=== PATIENT | male | born 1955 | race Caucasian/White ===

== ENCOUNTER 2017-10-19 14:06 | Inpatient (IN) | payer MEDICAID, OTHER ==
[~2017-10-19] VITALS: Ht 190.5 cm; Wt 135.6 kg
[~2017-10-19 14:06] MED LIST: ASCO500C6 PO; WARF4TAB71 PO
[2017-10-19] MEDS ORDERED: PIPERACILLIN/TAZ 3.375G PREMIX 50 ML IV ONE (15:30)
[2017-10-19] MEDS ORDERED: VANCOMYCIN 1 G PREMIX 200 ML IV ONE (15:30)
[2017-10-19] MEDS ORDERED: CLINDAMYCIN 900 MG in DEXTROSE 5% WATER 50 ML IV ONE (15:30)
[2017-10-19] MEDS ORDERED: AZTREONAM 2 GM in DEXT 5% WATER 100 ML IV ONE (15:30)
[2017-10-19] MEDS ORDERED: SODIUM CHLORIDE 0.9% 1000ML BAG (SEPSIS BOLUS) IV ONE ×2 (15:30→23:00)
[2017-10-19 16:03] LABS: HEMATOCRIT. 34.9 % (42.0-52.0); HEMOGLOBIN. 11.3 g/dL (14.0-18.0); MEAN CORPUSCULAR HEMOGLOBIN 27.1 pg (28.0-32.0); MEAN CORPUSCULAR VOLUME 83.3 fL (80.0-94.0); PLATELET 282 x1000/uL (130-400); RED BLOOD CELL COUNT 4.19 mill/uL (4.7-6.1)
[2017-10-19 16:08] LABS: CHLORIDE 92 mEq/L (98-107)
[2017-10-19 17:01] LABS: BG BASE EXCESS -10.5 mmol/L (-2.0-2.0); BG CARBOXYHEMOGLOBIN 0.3 % (0.5-1.5); BG DEOXYHEMOGLOBIN 4.3 % (0.0-5.0); BG HCO3 ACT 13.7 mmol/L (22.0-26.0); BG METHEMOGLOBIN 0.3 % (0.0-1.5); BG OXYGEN SATURATION 95.7 % (92.0-98.5); BG OXYHEMOGLOBIN 95.1 % (94.0-97.0); BG PCO2 25.9 mmHg (35.0-45.0); BG PO2 82.8 mmHg (75.0-100.0); BG SAMPLE SITE RIGHT RADIAL; BG TOTAL HEMOGLOBIN 11.7 g/dL (12.0-18.0); BG VENT MODE ROOM AIR
[2017-10-19 17:41] LABS: PLATELET ESTIMATE NORMAL
[2017-10-19 18:48] VITALS: BP 110/61
[2017-10-19 19:41] LABS: CLARITY URINE CLOUDY (CLEAR); COLOR URINE DARK YELLOW (YELLOW); KETONES URINE NEGATIVE (NEGATIVE); LEUKOCYTE ESTERASE URINE TRACE (NEGATIVE); NITRITE URINE NEGATIVE (NEGATIVE); OCCULT BLOOD URINE NEGATIVE (NEGATIVE); PROTEIN URINE 2+ (NEGATIVE); SPECIFIC GRAVITY URINE 1.015 (1.005-1.030)
[2017-10-19 20:00] VITALS: BP 110/61
[2017-10-19] MEDS ORDERED: VANCOMYCIN 1 G PREMIX 200 ML IV SCH (21:45)
[2017-10-19] MEDS ORDERED: HYDROMORPHONE HCL/PF 2MG/ML CPJ IV PRN (21:45)
[2017-10-19] MEDS ORDERED: LORAZEPAM 2MG/ML CPJ IV PRN (21:45)
[2017-10-19] MEDS ORDERED: ONDANSETRON HCL 4MG/2ML INJ IV PRN (21:45)
[2017-10-19 22:00] VITALS: BP 97/65
[2017-10-19] MEDS ORDERED: DEXTROSE 50% WATER 50ML SYRINGE IV PRN (23:00)
[2017-10-19] MEDS ORDERED: DEXT 5%/0.45% NACL 1000ML 1,000 ML IV SCH (23:00)
[2017-10-19] MEDS ORDERED: SODIUM CHLORIDE 0.9% 500ML IV NR (23:00)
[2017-10-19] MEDS: ACETAMINOPHEN 650MG/20.3ML UDC GT PRN (23:27)
[2017-10-19 23:45] LABS: PROTHROMBIN TIME > 100.0 sec (9.1-11.1)
[2017-10-19 23:49] LABS: INR > 10.0
[2017-10-20] VITALS (16 sets, daily range): BP systolic 91–115; BP diastolic 49–65
[2017-10-20] MEDS: SODIUM CHLORIDE 0.9% 1,000 ML IV SCH ×2 (00:51→21:32)
[2017-10-20] MEDS ORDERED: SENN-170 MT (03:30)
[2017-10-20] MEDS ORDERED: CLON0.1T MT (03:30)
[2017-10-20] MEDS ORDERED: HYDR5CRY MC (03:30)
[2017-10-20] MEDS ORDERED: ASCO-339 MT (03:30)
[2017-10-20] MEDS ORDERED: ACET-2178 MT (03:30)
[2017-10-20] MEDS ORDERED: WARF4TAB40 MT (03:30)
[2017-10-20] MEDS ORDERED: METO-385 MT (03:30)
[2017-10-20] MEDS ORDERED: METF-414 MT (03:30)
[2017-10-20] MEDS: ACETAMINOPHEN 650MG/20.3ML UDC GT PRN (04:24)
[2017-10-20 06:48] LABS: HEMATOCRIT. 32.5 % (42.0-52.0); HEMOGLOBIN. 10.6 g/dL (14.0-18.0); MEAN CORPUSCULAR HEMOGLOBIN 26.8 pg (28.0-32.0); MEAN CORPUSCULAR VOLUME 81.9 fL (80.0-94.0); MEAN PLATELET VOLUME 9.3 fl (7.4-10.4); PLATELET 188 x1000/uL (130-400); RED BLOOD CELL COUNT 3.97 mill/uL (4.7-6.1); RED CELL DISTRIBUTION WIDTH 17.3 % (11.6-14.6)
[2017-10-20 07:55] LABS: PHOSPHORUS 4.3 mg/dL (2.5-4.9)
[2017-10-20] MEDS: INSULIN LISPRO 100 UNITS/ML SUBCUT SCH ×4 (08:00→21:58)
[2017-10-20] MEDS: BLOOD SUGAR DIAGNOSTIC STRIP TEST SCH ×4 (08:44→21:58)
[2017-10-20] MEDS ORDERED: ENOXAPARIN 40MG/0.4ML SYR SUBCUT SCH (09:00)
[2017-10-20 09:15] LABS: *AMPHETAMINES SCREEN URINE NEGATIVE (NEGATIVE); *BARBITURATES SCREEN URINE NEGATIVE (NEGATIVE); *BENZODIAZEPINES SCREEN URINE NEGATIVE (NEGATIVE); *COCAINE SCREEN URINE NEGATIVE (NEGATIVE)
[2017-10-20 09:16] LABS: CANNABINOID URINE SCREEN NEGATIVE (NEGATIVE); METHADONE URINE SCREEN NEGATIVE (NEGATIVE); OPIATES URINE SCREEN PRESUMTIVE POSITIVE (NEGATIVE); PHENCYCLIDINE URINE SCREEN NEGATIVE (NEGATIVE)
[2017-10-20] MEDS: CLINDAMYCIN 900 MG in DEXTROSE 5% WATER 50 ML IV SCH ×2 (13:22→21:58)
[2017-10-20 13:47] LABS: PROTHROMBIN TIME > 100.0 sec (9.1-11.1)
[2017-10-20 13:50] LABS: INR > 10.0
[2017-10-20 17:35] LABS: PLATELET ESTIMATE NORMAL
[2017-10-20] MEDS: AZTREONAM 1 G in DEXTROSE 5% WATER 50 ML IV SCH (18:38)
[2017-10-20] MEDS ORDERED: DAPTOMYCIN 250 MG in SODIUM CHLORIDE 0.9% 50 ML IV SCH (20:00)
[2017-10-21] VITALS (25 sets, daily range): BP systolic 95–118; BP diastolic 47–69
[2017-10-21 00:20] LABS: PROTHROMBIN TIME > 100.0 sec (9.1-11.1)
[2017-10-21 00:24] LABS: INR > 10.0
[2017-10-21] MEDS: SODIUM CHLORIDE 0.9% 1,000 ML IV SCH ×2 (05:12→09:13)
[2017-10-21] MEDS: CLINDAMYCIN 900 MG in DEXTROSE 5% WATER 50 ML IV SCH ×3 (05:12→21:03)
[2017-10-21] MEDS: AZTREONAM 1 G in DEXTROSE 5% WATER 50 ML IV SCH ×2 (06:28→18:15)
[2017-10-21] MEDS ORDERED: PHYTONADIONE 10MG/ML AMP SUBCUT SCH (07:15)
[2017-10-21 07:25] LABS: HEMATOCRIT. 27.5 % (42.0-52.0); HEMOGLOBIN. 9.3 g/dL (14.0-18.0); MEAN CORPUSCULAR HEMOGLOBIN 27.2 pg (28.0-32.0); MEAN CORPUSCULAR VOLUME 80.5 fL (80.0-94.0); MEAN PLATELET VOLUME 9.3 fl (7.4-10.4); PLATELET 129 x1000/uL (130-400); RED BLOOD CELL COUNT 3.42 mill/uL (4.7-6.1); RED CELL DISTRIBUTION WIDTH 17.2 % (11.6-14.6)
[2017-10-21] MEDS: BLOOD SUGAR DIAGNOSTIC STRIP TEST SCH ×4 (08:10→21:05)
[2017-10-21] MEDS: INSULIN LISPRO 100 UNITS/ML SUBCUT SCH ×4 (08:23→21:05)
[2017-10-21] MEDS: INSULIN GLARGINE UD 100 UNITS/ML SYR SUBCUT SCH ×2 (09:14→21:04)
[2017-10-21] MEDS ORDERED: INSULIN GLARGINE UD 100 UNITS/ML SYR SUBCUT SCH (10:00)
[2017-10-21] MEDS ORDERED: DAPTOMYCIN 500 MG in SODIUM CHLORIDE 0.9% 50 ML IV SCH (14:30)
[2017-10-21 15:17] LABS: PLATELET ESTIMATE SLIGHTLY DECREASED
[2017-10-21 19:40] LABS: PROTHROMBIN TIME 61.7 sec (9.1-11.1)
[2017-10-21 20:04] LABS: PHOSPHORUS 4.5 mg/dL (2.5-4.9)
[2017-10-21 20:14] LABS: INR 6.3
[2017-10-22] VITALS (12 sets, daily range): BP systolic 101–125; BP diastolic 55–72
[2017-10-22] MEDS: SODIUM CHLORIDE 0.9% 1,000 ML IV SCH ×3 (05:29→21:19)
[2017-10-22] MEDS: CLINDAMYCIN 900 MG in DEXTROSE 5% WATER 50 ML IV SCH ×3 (05:29→21:10)
[2017-10-22] MEDS: AZTREONAM 1 G in DEXTROSE 5% WATER 50 ML IV SCH ×2 (06:39→17:26)
[2017-10-22 07:13] LABS: HEMATOCRIT. 26.8 % (42.0-52.0); HEMOGLOBIN. 8.9 g/dL (14.0-18.0); MEAN CORPUSCULAR HEMOGLOBIN 26.9 pg (28.0-32.0); MEAN CORPUSCULAR VOLUME 80.6 fL (80.0-94.0); MEAN PLATELET VOLUME 9.7 fl (7.4-10.4); PLATELET 118 x1000/uL (130-400); RED BLOOD CELL COUNT 3.32 mill/uL (4.7-6.1); RED CELL DISTRIBUTION WIDTH 17.3 % (11.6-14.6)
[2017-10-22] MEDS: BLOOD SUGAR DIAGNOSTIC STRIP TEST SCH ×4 (07:32→21:10)
[2017-10-22] MEDS: INSULIN LISPRO 100 UNITS/ML SUBCUT SCH ×4 (08:40→21:11)
[2017-10-22] MEDS ORDERED: DAPTOMYCIN 500 MG in SODIUM CHLORIDE 0.9% 50 ML IV SCH (09:00)
[2017-10-22] MEDS: INSULIN GLARGINE UD 100 UNITS/ML SYR SUBCUT SCH ×2 (09:52→21:11)
[2017-10-22 10:47] LABS: PLATELET ESTIMATE SLIGHTLY DECREASED
[2017-10-22] MEDS ORDERED: PHYTONADIONE 10MG/ML AMP SUBCUT NR ×2 (12:13→16:45)
[2017-10-23] VITALS (17 sets, daily range): BP systolic 108–143; BP diastolic 57–72
[2017-10-23] MEDS: CLINDAMYCIN 900 MG in DEXTROSE 5% WATER 50 ML IV SCH ×3 (05:26→21:51)
[2017-10-23] MEDS: AZTREONAM 1 G in DEXTROSE 5% WATER 50 ML IV SCH ×2 (06:29→17:20)
[2017-10-23] MEDS: SODIUM CHLORIDE 0.9% 1,000 ML IV SCH ×2 (06:30→17:20)
[2017-10-23] MEDS: BLOOD SUGAR DIAGNOSTIC STRIP TEST SCH ×4 (07:54→21:51)
[2017-10-23] MEDS: INSULIN LISPRO 100 UNITS/ML SUBCUT SCH ×4 (08:17→21:57)
[2017-10-23 09:00] LABS: HEMATOCRIT. 28.6 % (42.0-52.0); HEMOGLOBIN. 9.5 g/dL (14.0-18.0); MEAN CORPUSCULAR HEMOGLOBIN 26.6 pg (28.0-32.0); MEAN CORPUSCULAR VOLUME 80.5 fL (80.0-94.0); MEAN PLATELET VOLUME 9.4 fl (7.4-10.4); PLATELET 120 x1000/uL (130-400); RED BLOOD CELL COUNT 3.56 mill/uL (4.7-6.1); RED CELL DISTRIBUTION WIDTH 17.5 % (11.6-14.6)
[2017-10-23] MEDS: INSULIN GLARGINE UD 100 UNITS/ML SYR SUBCUT SCH ×2 (09:44→21:51)
[2017-10-23 11:05] LABS: PLATELET ESTIMATE SLIGHTLY DECREASED
[2017-10-23 11:42] LABS: PROTHROMBIN TIME > 100.0 sec (9.1-11.1)
[2017-10-23 11:43] LABS: INR > 10.0
[2017-10-24] VITALS (19 sets, daily range): BP systolic 116–137; BP diastolic 56–77
[2017-10-24] MEDS: SODIUM CHLORIDE 0.9% 1,000 ML IV SCH ×3 (05:11→22:15)
[2017-10-24] MEDS: CLINDAMYCIN 900 MG in DEXTROSE 5% WATER 50 ML IV SCH ×3 (05:18→21:37)
[2017-10-24] MEDS: AZTREONAM 1 G in DEXTROSE 5% WATER 50 ML IV SCH ×2 (05:50→17:41)
[2017-10-24] MEDS: BLOOD SUGAR DIAGNOSTIC STRIP TEST SCH ×4 (08:03→21:40)
[2017-10-24] MEDS: INSULIN LISPRO 100 UNITS/ML SUBCUT SCH ×4 (08:55→21:39)
[2017-10-24] MEDS: INSULIN GLARGINE UD 100 UNITS/ML SYR SUBCUT SCH ×2 (10:13→21:39)
[2017-10-24 14:05] LABS: HEMATOCRIT. 26.4 % (42.0-52.0); HEMOGLOBIN. 8.8 g/dL (14.0-18.0); MEAN CORPUSCULAR HEMOGLOBIN 27.1 pg (28.0-32.0); MEAN CORPUSCULAR VOLUME 81.1 fL (80.0-94.0); MEAN PLATELET VOLUME 9.8 fl (7.4-10.4); PLATELET 165 x1000/uL (130-400); RED BLOOD CELL COUNT 3.25 mill/uL (4.7-6.1); RED CELL DISTRIBUTION WIDTH 16.8 % (11.6-14.6)
[2017-10-24 14:19] LABS: PROTHROMBIN TIME 42.1 sec (9.1-11.1)
[2017-10-24 14:29] LABS: INR 4.3
[2017-10-24 14:36] LABS: PLATELET ESTIMATE NORMAL
[2017-10-25] VITALS (8 sets, daily range): BP systolic 106–142; BP diastolic 52–68
[2017-10-25] MEDS: CLINDAMYCIN 900 MG in DEXTROSE 5% WATER 50 ML IV SCH ×3 (04:29→22:05)
[2017-10-25] MEDS: AZTREONAM 1 G in DEXTROSE 5% WATER 50 ML IV SCH ×2 (05:30→18:58)
[2017-10-25] MEDS: BLOOD SUGAR DIAGNOSTIC STRIP TEST SCH ×4 (06:59→21:31)
[2017-10-25] MEDS: SODIUM CHLORIDE 0.9% 1,000 ML IV SCH ×3 (08:15→21:44)
[2017-10-25] MEDS: INSULIN LISPRO 100 UNITS/ML SUBCUT SCH ×4 (08:25→21:43)
[2017-10-25 09:07] LABS: HEMATOCRIT. 24.1 % (42.0-52.0); HEMOGLOBIN. 8.1 g/dL (14.0-18.0); MEAN CORPUSCULAR HEMOGLOBIN 27.2 pg (28.0-32.0); MEAN CORPUSCULAR VOLUME 80.9 fL (80.0-94.0); MEAN PLATELET VOLUME 9.6 fl (7.4-10.4); PLATELET 176 x1000/uL (130-400); RED BLOOD CELL COUNT 2.98 mill/uL (4.7-6.1); RED CELL DISTRIBUTION WIDTH 16.5 % (11.6-14.6)
[2017-10-25 09:20] LABS: PROTHROMBIN TIME 43.2 sec (9.1-11.1)
[2017-10-25 11:39] LABS: INR 4.4
[2017-10-25] MEDS: INSULIN GLARGINE UD 100 UNITS/ML SYR SUBCUT SCH ×2 (11:58→21:43)
[2017-10-25] MEDS ORDERED: PHYTONADIONE 10MG/ML AMP SUBCUT NR (12:00)
[2017-10-25 16:03] LABS: PLATELET ESTIMATE NORMAL
[2017-10-26 00:15] VITALS: BP 142/43
[2017-10-26 04:00] VITALS: BP 117/54
[2017-10-26] MEDS: AZTREONAM 1 G in DEXTROSE 5% WATER 50 ML IV SCH ×2 (05:13→18:37)
[2017-10-26] MEDS: BLOOD SUGAR DIAGNOSTIC STRIP TEST SCH ×4 (05:13→21:00)
[2017-10-26] MEDS: CLINDAMYCIN 900 MG in DEXTROSE 5% WATER 50 ML IV SCH ×3 (05:13→21:40)
[2017-10-26 06:40] LABS: HEMATOCRIT. 23.1 % (42.0-52.0); HEMOGLOBIN. 7.7 g/dL (14.0-18.0); MEAN CORPUSCULAR HEMOGLOBIN 27.6 pg (28.0-32.0); MEAN CORPUSCULAR VOLUME 82.8 fL (80.0-94.0); MEAN PLATELET VOLUME 9.7 fl (7.4-10.4); PLATELET 215 x1000/uL (130-400); RED BLOOD CELL COUNT 2.78 mill/uL (4.7-6.1); RED CELL DISTRIBUTION WIDTH 16.5 % (11.6-14.6)
[2017-10-26 08:00] VITALS: BP 116/55
[2017-10-26] MEDS: INSULIN LISPRO 100 UNITS/ML SUBCUT SCH ×4 (08:10→21:54)
[2017-10-26] MEDS: INSULIN GLARGINE UD 100 UNITS/ML SYR SUBCUT SCH ×2 (10:00→21:53)
[2017-10-26 12:00] VITALS: BP 124/61
[2017-10-26 14:06] LABS: PLATELET ESTIMATE NORMAL
[2017-10-26 16:00] VITALS: BP 136/67
[2017-10-26 20:00] VITALS: BP 137/54
[2017-10-26 20:52] LABS: INR 2.4; PROTHROMBIN TIME 23.4 sec (9.1-11.1)
[2017-10-27] MEDS: ACETAMINOPHEN 650MG/20.3ML UDC GT PRN ×2 (00:30→20:27)
[2017-10-27] MEDS: LINEZOLID 600 MG PREMIX 300 ML IV SCH ×3 (00:31→20:27)
[2017-10-27 00:36] VITALS: BP 132/41
[2017-10-27 04:00] VITALS: BP 129/55
[2017-10-27] MEDS: AZTREONAM 1 G in DEXTROSE 5% WATER 50 ML IV SCH (06:58)
[2017-10-27] MEDS: BLOOD SUGAR DIAGNOSTIC STRIP TEST SCH ×4 (07:04→20:16)
[2017-10-27 08:00] VITALS: BP 124/58
[2017-10-27] MEDS: INSULIN LISPRO 100 UNITS/ML SUBCUT SCH ×4 (08:10→20:52)
[2017-10-27 09:32] LABS: HEMATOCRIT. 23.4 % (42.0-52.0); HEMOGLOBIN. 7.7 g/dL (14.0-18.0); MEAN CORPUSCULAR HEMOGLOBIN 27.6 pg (28.0-32.0); MEAN CORPUSCULAR VOLUME 83.7 fL (80.0-94.0); MEAN PLATELET VOLUME 9.3 fl (7.4-10.4); PLATELET 236 x1000/uL (130-400); RED CELL DISTRIBUTION WIDTH 16.1 % (11.6-14.6)
[2017-10-27] MEDS: INSULIN GLARGINE UD 100 UNITS/ML SYR SUBCUT SCH ×2 (10:29→20:52)
[2017-10-27 11:07] LABS: PLATELET ESTIMATE NORMAL
[2017-10-27 12:00] VITALS: BP 120/63
[2017-10-27 16:00] VITALS: BP 136/55
[2017-10-27] MEDS ORDERED: AZTREONAM 2 GM in DEXT 5% WATER 100 ML IV SCH (18:00)
[2017-10-27 20:00] VITALS: BP 129/52
[2017-10-28] VITALS: BP 123/52
[2017-10-28 04:00] VITALS: BP 133/88
[2017-10-28] MEDS: BLOOD SUGAR DIAGNOSTIC STRIP TEST SCH ×4 (06:57→21:26)
[2017-10-28] MEDS: INSULIN LISPRO 100 UNITS/ML SUBCUT SCH ×4 (06:57→21:28)
[2017-10-28 08:00] VITALS: BP 139/87
[2017-10-28] MEDS: LINEZOLID 600 MG PREMIX 300 ML IV SCH ×2 (10:00→21:28)
[2017-10-28] MEDS: INSULIN GLARGINE UD 100 UNITS/ML SYR SUBCUT SCH ×2 (10:41→22:36)
[2017-10-28 12:00] VITALS: BP 143/67
[2017-10-28 16:00] VITALS: BP 132/70
[2017-10-28] MEDS ORDERED: LIDOCAINE HCL/EPINEPHRINE 1%-EPI 1:100,000 20 ML VIAL INFIL NR (19:00)
[2017-10-28 20:00] VITALS: BP 134/65
[2017-10-28 22:01] LABS: INR 1.3; PROTHROMBIN TIME 13.4 sec (9.1-11.1)
[2017-10-29] VITALS (9 sets, daily range): BP systolic 124–144; BP diastolic 45–67
[2017-10-29 07:26] LABS: MEAN CORPUSCULAR HEMOGLOBIN 28.1 pg (28.0-32.0); MEAN CORPUSCULAR VOLUME 86.3 fL (80.0-94.0); MEAN PLATELET VOLUME 9.4 fl (7.4-10.4); PLATELET 242 x1000/uL (130-400); RED BLOOD CELL COUNT 2.41 mill/uL (4.7-6.1); RED CELL DISTRIBUTION WIDTH 17.2 % (11.6-14.6)
[2017-10-29] MEDS: BLOOD SUGAR DIAGNOSTIC STRIP TEST SCH ×4 (07:40→21:19)
[2017-10-29 08:10] LABS: HEMATOCRIT. 20.8 % (42.0-52.0); HEMOGLOBIN. 6.8 g/dL (14.0-18.0)
[2017-10-29] MEDS: INSULIN LISPRO 100 UNITS/ML SUBCUT SCH ×4 (08:10→21:55)
[2017-10-29] MEDS: INSULIN GLARGINE UD 100 UNITS/ML SYR SUBCUT SCH ×2 (10:00→21:54)
[2017-10-29 10:10] LABS: CHLORIDE 105 mEq/L (98-107)
[2017-10-29 10:32] LABS: PHOSPHORUS 4.3 mg/dL (2.5-4.9)
[2017-10-29] MEDS: LINEZOLID 600 MG PREMIX 300 ML IV SCH ×2 (10:59→21:57)
[2017-10-29 16:15] LABS: HEPATITIS B SURFACE ANTIGEN NEGATIVE
[2017-10-29 20:42] LABS: PLATELET ESTIMATE NORMAL
[2017-10-29 21:51] LABS: HEMATOCRIT 24.3 % (42.0-52.0)
[2017-10-29 21:59] LABS: INR 1.2; PROTHROMBIN TIME 12.4 sec (9.1-11.1)
[2017-10-30] VITALS (10 sets, daily range): BP systolic 116–163; BP diastolic 60–73
[2017-10-30] MEDS: BLOOD SUGAR DIAGNOSTIC STRIP TEST SCH ×4 (08:09→20:24)
[2017-10-30] MEDS: INSULIN LISPRO 100 UNITS/ML SUBCUT SCH ×5 (08:10→20:24)
[2017-10-30] MEDS: LINEZOLID 600 MG PREMIX 300 ML IV SCH ×2 (08:27→20:20)
[2017-10-30] MEDS ORDERED: LIDOCAINE HCL/EPINEPHRINE 1%-EPI 1:100,000 30 ML VIAL INFIL SCH (08:30)
[2017-10-30] MEDS: INSULIN GLARGINE UD 100 UNITS/ML SYR SUBCUT SCH ×2 (08:40→21:47)
[2017-10-30 08:59] LABS: HEMATOCRIT. 26.7 % (42.0-52.0); HEMOGLOBIN. 8.9 g/dL (14.0-18.0); MEAN CORPUSCULAR HEMOGLOBIN 28.6 pg (28.0-32.0); MEAN CORPUSCULAR VOLUME 85.2 fL (80.0-94.0); MEAN PLATELET VOLUME 9.5 fl (7.4-10.4); PLATELET 260 x1000/uL (130-400); RED BLOOD CELL COUNT 3.13 mill/uL (4.7-6.1); RED CELL DISTRIBUTION WIDTH 16.9 % (11.6-14.6)
[2017-10-30 09:53] LABS: PLATELET ESTIMATE NORMAL
[2017-10-30 13:32] LABS: CHLORIDE 104 mEq/L (98-107)
[2017-10-30 13:47] LABS: INR 1.2; PROTHROMBIN TIME 12.5 sec (9.1-11.1)
[2017-10-31] VITALS: BP 145/70
[2017-10-31 04:00] VITALS: BP 153/68
[2017-10-31] MEDS: BLOOD SUGAR DIAGNOSTIC STRIP TEST SCH ×4 (05:05→20:25)
[2017-10-31 08:00] VITALS: BP 147/74
[2017-10-31] MEDS: INSULIN LISPRO 100 UNITS/ML SUBCUT SCH ×4 (08:10→20:30)
[2017-10-31] MEDS: LINEZOLID 600 MG PREMIX 300 ML IV SCH ×2 (09:21→20:29)
[2017-10-31] MEDS: INSULIN GLARGINE UD 100 UNITS/ML SYR SUBCUT SCH ×2 (09:22→21:12)
[2017-10-31 12:00] VITALS: BP 166/87
[2017-10-31] MEDS: AMLODIPINE 5MG TABLET PO SCH ×2 (12:39→20:30)
[2017-10-31 16:00] VITALS: BP 168/72
[2017-10-31 20:00] VITALS: BP 125/62
[2017-11-01] VITALS: BP 143/60
[2017-11-01 04:00] VITALS: BP 118/56
[2017-11-01] MEDS: BLOOD SUGAR DIAGNOSTIC STRIP TEST SCH ×4 (07:49→21:17)
[2017-11-01] MEDS: INSULIN LISPRO 100 UNITS/ML SUBCUT SCH ×4 (07:49→21:00)
[2017-11-01 08:00] VITALS: BP 136/73
[2017-11-01] MEDS: AMLODIPINE 5MG TABLET PO SCH ×2 (09:00→21:15)
[2017-11-01] MEDS: LINEZOLID 600 MG PREMIX 300 ML IV SCH ×2 (09:01→21:17)
[2017-11-01] MEDS: INSULIN GLARGINE UD 100 UNITS/ML SYR SUBCUT SCH ×2 (09:03→21:16)
[2017-11-01 12:00] VITALS: BP 129/70
[2017-11-01 16:00] VITALS: BP 134/64
[2017-11-01 20:00] VITALS: BP 135/55
[2017-11-02 04:00] VITALS: BP 127/55
[2017-11-02 07:40] LABS: BASOPHILS % 0.8 % (0.0-2.0); EOSINOPHILS % 0.8 % (0.0-5.0); HEMATOCRIT. 26.8 % (42.0-52.0); HEMOGLOBIN. 8.8 g/dL (14.0-18.0); LYMPHOCYTES % 8.7 % (20.0-50.0); MEAN CORPUSCULAR HEMOGLOBIN 28.7 pg (28.0-32.0); MEAN CORPUSCULAR VOLUME 87.4 fL (80.0-94.0); MEAN PLATELET VOLUME 8.4 fl (7.4-10.4); MONOCYTES % 6.5 % (2.0-8.0); NEUTROPHILS % 83.2 % (40.0-76.0); PLATELET 208 x1000/uL (130-400); RED BLOOD CELL COUNT 3.06 mill/uL (4.7-6.1); RED CELL DISTRIBUTION WIDTH 18.4 % (11.6-14.6)
[2017-11-02 07:58] LABS: CHLORIDE 102 mEq/L (98-107)
[2017-11-02 08:00] VITALS: BP 146/74
[2017-11-02] MEDS: INSULIN LISPRO 100 UNITS/ML SUBCUT SCH ×4 (08:10→21:00)
[2017-11-02] MEDS: BLOOD SUGAR DIAGNOSTIC STRIP TEST SCH ×4 (08:11→21:49)
[2017-11-02] MEDS: AMLODIPINE 5MG TABLET PO SCH ×2 (09:07→21:48)
[2017-11-02] MEDS: LINEZOLID 600 MG PREMIX 300 ML IV SCH ×2 (09:09→21:50)
[2017-11-02] MEDS: INSULIN GLARGINE UD 100 UNITS/ML SYR SUBCUT SCH ×2 (09:10→21:49)
[2017-11-02 12:00] VITALS: BP 133/68
[2017-11-02] MEDS: LEVOFLOXACIN 250MG TABLET PO SCH (12:40)
[2017-11-02 16:00] VITALS: BP 136/63
[2017-11-02] MEDS: MAGNESIUM OXIDE 400MG TABLET PO SCH (16:56)
[2017-11-02 20:00] VITALS: BP 122/47
[2017-11-03] MEDS: BLOOD SUGAR DIAGNOSTIC STRIP TEST SCH ×3 (05:55→21:06)
[2017-11-03] MEDS: INSULIN LISPRO 100 UNITS/ML SUBCUT SCH ×3 (07:39→21:00)
[2017-11-03 08:00] VITALS: BP 127/62
[2017-11-03] MEDS: MAGNESIUM OXIDE 400MG TABLET PO SCH (09:32)
[2017-11-03] MEDS: AMLODIPINE 5MG TABLET PO SCH ×2 (09:32→21:00)
[2017-11-03] MEDS: INSULIN GLARGINE UD 100 UNITS/ML SYR SUBCUT SCH ×2 (09:33→21:12)
[2017-11-03] MEDS: LEVOFLOXACIN 250MG TABLET PO SCH (11:29)
[2017-11-03 12:00] VITALS: BP 136/65
[2017-11-03 16:00] VITALS: BP 116/54
[2017-11-03 20:00] VITALS: BP 111/47
[2017-11-04] VITALS: BP 126/55
[2017-11-04] MEDS: ACETAMINOPHEN 650MG/20.3ML UDC GT PRN ×2 (00:41→22:05)
[2017-11-04 04:00] VITALS: BP 114/55
[2017-11-04] MEDS: BLOOD SUGAR DIAGNOSTIC STRIP TEST SCH ×4 (05:46→21:00)
[2017-11-04] MEDS: INSULIN LISPRO 100 UNITS/ML SUBCUT SCH ×4 (07:31→21:00)
[2017-11-04 08:00] VITALS: BP 126/54
[2017-11-04] MEDS: AMLODIPINE 5MG TABLET PO SCH ×2 (09:44→22:06)
[2017-11-04] MEDS: MAGNESIUM OXIDE 400MG TABLET PO SCH (09:44)
[2017-11-04] MEDS: INSULIN GLARGINE UD 100 UNITS/ML SYR SUBCUT SCH ×2 (09:46→22:07)
[2017-11-04] MEDS: LEVOFLOXACIN 250MG TABLET PO SCH (11:53)
[2017-11-04 12:00] VITALS: BP 128/54
[2017-11-04 16:00] VITALS: BP 135/60
[2017-11-04] MEDS: NYSTATIN POWDER 15GM TOP SCH (17:00)
[2017-11-04] MEDS: MUPIROCIN 2% OINT 22GM TOP SCH (17:00)
[2017-11-04 20:00] VITALS: BP 127/51
[2017-11-05] VITALS: BP 122/52
[2017-11-05 04:00] VITALS: BP 128/56
[2017-11-05] MEDS: BLOOD SUGAR DIAGNOSTIC STRIP TEST SCH ×4 (06:33→21:27)
[2017-11-05] MEDS: INSULIN LISPRO 100 UNITS/ML SUBCUT SCH ×4 (07:56→21:00)
[2017-11-05 08:00] VITALS: BP 133/66
[2017-11-05] MEDS: INSULIN GLARGINE UD 100 UNITS/ML SYR SUBCUT SCH ×2 (09:35→22:14)
[2017-11-05] MEDS: NYSTATIN POWDER 15GM TOP SCH ×2 (09:35→18:04)
[2017-11-05] MEDS: MUPIROCIN 2% OINT 22GM TOP SCH ×2 (09:35→18:04)
[2017-11-05] MEDS: MAGNESIUM OXIDE 400MG TABLET PO SCH (09:36)
[2017-11-05] MEDS: AMLODIPINE 5MG TABLET PO SCH ×2 (09:37→22:13)
[2017-11-05] MEDS: LEVOFLOXACIN 250MG TABLET PO SCH (10:05)
[2017-11-05 10:44] LABS: BASOPHILS % 1.1 % (0.0-2.0); EOSINOPHILS % 2.3 % (0.0-5.0); HEMATOCRIT. 25.9 % (42.0-52.0); HEMOGLOBIN. 8.6 g/dL (14.0-18.0); LYMPHOCYTES % 9.3 % (20.0-50.0); MEAN CORPUSCULAR HEMOGLOBIN 29.4 pg (28.0-32.0); MEAN PLATELET VOLUME 7.6 fl (7.4-10.4); MONOCYTES % 8.2 % (2.0-8.0); NEUTROPHILS % 79.1 % (40.0-76.0); PLATELET 155 x1000/uL (130-400); RED BLOOD CELL COUNT 2.91 mill/uL (4.7-6.1); RED CELL DISTRIBUTION WIDTH 19.4 % (11.6-14.6)
[2017-11-05 10:49] LABS: INR 1.2; PROTHROMBIN TIME 12.5 sec (9.1-11.1)
[2017-11-05 12:00] VITALS: BP 139/60
[2017-11-05 16:00] VITALS: BP 124/55
[2017-11-05 20:00] VITALS: BP 132/57
[2017-11-06] VITALS: BP 140/66
[2017-11-06 04:00] VITALS: BP 134/66
[2017-11-06] MEDS: BLOOD SUGAR DIAGNOSTIC STRIP TEST SCH ×4 (07:31→21:16)
[2017-11-06] MEDS: INSULIN LISPRO 100 UNITS/ML SUBCUT SCH ×4 (07:31→21:00)
[2017-11-06 08:00] VITALS: BP 133/67
[2017-11-06] MEDS: MAGNESIUM OXIDE 400MG TABLET PO SCH (08:53)
[2017-11-06] MEDS: AMLODIPINE 5MG TABLET PO SCH ×2 (08:53→21:00)
[2017-11-06] MEDS: NYSTATIN POWDER 15GM TOP SCH ×2 (08:58→17:00)
[2017-11-06] MEDS: MUPIROCIN 2% OINT 22GM TOP SCH ×2 (09:00→17:00)
[2017-11-06] MEDS: LEVOFLOXACIN 250MG TABLET PO SCH (10:56)
[2017-11-06] MEDS: INSULIN GLARGINE UD 100 UNITS/ML SYR SUBCUT SCH ×2 (10:56→22:00)
[2017-11-06 12:00] VITALS: BP 138/71
[2017-11-06 16:00] VITALS: BP 156/71
[2017-11-06 20:00] VITALS: BP 118/56
[2017-11-07] VITALS: BP 120/58
[2017-11-07 04:00] VITALS: BP 120/58
[2017-11-07 08:00] VITALS: BP 125/58
[2017-11-07] MEDS: INSULIN LISPRO 100 UNITS/ML SUBCUT SCH ×4 (08:10→20:15)
[2017-11-07] MEDS: BLOOD SUGAR DIAGNOSTIC STRIP TEST SCH ×4 (08:26→20:15)
[2017-11-07] MEDS: NYSTATIN POWDER 15GM TOP SCH ×2 (09:00→17:00)
[2017-11-07] MEDS: MUPIROCIN 2% OINT 22GM TOP SCH ×2 (09:00→17:00)
[2017-11-07] MEDS: MAGNESIUM OXIDE 400MG TABLET PO SCH (09:06)
[2017-11-07] MEDS: AMLODIPINE 5MG TABLET PO SCH ×2 (09:06→20:30)
[2017-11-07] MEDS: INSULIN GLARGINE UD 100 UNITS/ML SYR SUBCUT SCH ×2 (10:00→20:37)
[2017-11-07] MEDS: LEVOFLOXACIN 250MG TABLET PO SCH (11:35)
[2017-11-07 12:00] VITALS: BP 123/56
[2017-11-07 16:00] VITALS: BP 127/59
[2017-11-07 20:00] VITALS: BP 129/67
[2017-11-07] MEDS: ACETAMINOPHEN 650MG/20.3ML UDC GT PRN (20:31)
[2017-11-08] VITALS: BP 128/63
[2017-11-08 04:00] VITALS: BP 122/62
[2017-11-08 08:00] VITALS: BP 190/83
[2017-11-08] MEDS: INSULIN LISPRO 100 UNITS/ML SUBCUT SCH ×4 (08:10→21:00)
[2017-11-08] MEDS: BLOOD SUGAR DIAGNOSTIC STRIP TEST SCH ×4 (08:12→21:09)
[2017-11-08] MEDS: AMLODIPINE 5MG TABLET PO SCH ×2 (08:13→21:11)
[2017-11-08] MEDS: MAGNESIUM OXIDE 400MG TABLET PO SCH (08:13)
[2017-11-08] MEDS: NYSTATIN POWDER 15GM TOP SCH ×2 (08:14→17:00)
[2017-11-08] MEDS: MUPIROCIN 2% OINT 22GM TOP SCH ×2 (08:15→17:00)
[2017-11-08 12:00] VITALS: BP 139/66
[2017-11-08] MEDS: LEVOFLOXACIN 250MG TABLET PO SCH (13:17)
[2017-11-08] MEDS: INSULIN GLARGINE UD 100 UNITS/ML SYR SUBCUT SCH ×2 (13:17→21:11)
[2017-11-08 16:00] VITALS: BP 136/64
[2017-11-08 20:00] VITALS: BP 120/56
[2017-11-09] VITALS (7 sets, daily range): BP systolic 122–130; BP diastolic 53–70
[2017-11-09] MEDS: BLOOD SUGAR DIAGNOSTIC STRIP TEST SCH ×4 (06:57→21:47)
[2017-11-09] MEDS: INSULIN LISPRO 100 UNITS/ML SUBCUT SCH ×4 (08:10→21:00)
[2017-11-09] MEDS: MAGNESIUM OXIDE 400MG TABLET PO SCH (08:38)
[2017-11-09] MEDS: LEVOFLOXACIN 250MG TABLET PO SCH (08:38)
[2017-11-09] MEDS: AMLODIPINE 5MG TABLET PO SCH ×2 (08:38→21:51)
[2017-11-09] MEDS: NYSTATIN POWDER 15GM TOP SCH ×2 (08:39→17:27)
[2017-11-09] MEDS: MUPIROCIN 2% OINT 22GM TOP SCH ×2 (08:39→17:27)
[2017-11-09] MEDS: INSULIN GLARGINE UD 100 UNITS/ML SYR SUBCUT SCH ×2 (12:36→21:48)
[2017-11-10] VITALS: BP 127/70
[2017-11-10 04:00] VITALS: BP 125/68
[2017-11-10] MEDS: BLOOD SUGAR DIAGNOSTIC STRIP TEST SCH ×3 (07:40→21:47)
[2017-11-10 07:51] LABS: BASOPHILS % 0.7 % (0.0-2.0); EOSINOPHILS % 3.3 % (0.0-5.0); HEMATOCRIT. 27.4 % (42.0-52.0); HEMOGLOBIN. 9.2 g/dL (14.0-18.0); LYMPHOCYTES % 9.5 % (20.0-50.0); MEAN CORPUSCULAR HEMOGLOBIN 29.8 pg (28.0-32.0); MEAN CORPUSCULAR VOLUME 88.9 fL (80.0-94.0); MEAN PLATELET VOLUME 6.9 fl (7.4-10.4); NEUTROPHILS % 75.5 % (40.0-76.0); PLATELET 235 x1000/uL (130-400); RED BLOOD CELL COUNT 3.08 mill/uL (4.7-6.1); RED CELL DISTRIBUTION WIDTH 20.7 % (11.6-14.6)
[2017-11-10 08:00] VITALS: BP 127/65
[2017-11-10 08:09] LABS: CHLORIDE 101 mEq/L (98-107)
[2017-11-10] MEDS: INSULIN LISPRO 100 UNITS/ML SUBCUT SCH ×3 (08:10→21:00)
[2017-11-10] MEDS: MAGNESIUM OXIDE 400MG TABLET PO SCH (10:08)
[2017-11-10] MEDS: AMLODIPINE 5MG TABLET PO SCH ×2 (10:08→21:49)
[2017-11-10] MEDS: INSULIN GLARGINE UD 100 UNITS/ML SYR SUBCUT SCH ×2 (10:10→21:50)
[2017-11-10] MEDS: NYSTATIN POWDER 15GM TOP SCH ×2 (10:17→17:00)
[2017-11-10] MEDS: MUPIROCIN 2% OINT 22GM TOP SCH ×2 (10:18→17:00)
[2017-11-10 12:00] VITALS: BP 129/68
[2017-11-10 16:00] VITALS: BP 133/60
[2017-11-10 20:00] VITALS: BP 127/61
[2017-11-11] VITALS: BP 95/56
[2017-11-11 04:00] VITALS: BP 127/68
[2017-11-11] MEDS: BLOOD SUGAR DIAGNOSTIC STRIP TEST SCH ×3 (06:49→17:40)
[2017-11-11] MEDS: INSULIN LISPRO 100 UNITS/ML SUBCUT SCH ×2 (08:10→13:10)
[2017-11-11 09:12] VITALS: BP 132/72
[2017-11-11] MEDS: MAGNESIUM OXIDE 400MG TABLET PO SCH (09:52)
[2017-11-11] MEDS: AMLODIPINE 5MG TABLET PO SCH ×2 (09:52→21:07)
[2017-11-11] MEDS: MUPIROCIN 2% OINT 22GM TOP SCH ×2 (09:53→17:06)
[2017-11-11] MEDS: NYSTATIN POWDER 15GM TOP SCH ×2 (09:53→17:06)
[2017-11-11] MEDS: INSULIN GLARGINE UD 100 UNITS/ML SYR SUBCUT SCH (09:54)
[2017-11-11 12:17] VITALS: BP 119/58
[2017-11-11 15:42] VITALS: BP 112/56
[2017-11-11 20:00] VITALS: BP 125/66
[2017-11-12] VITALS: BP 129/67
[2017-11-12 04:00] VITALS: BP 130/58
[2017-11-12] MEDS: INSULIN LISPRO 100 UNITS/ML SUBCUT SCH ×4 (08:10→21:00)
[2017-11-12] MEDS: MAGNESIUM OXIDE 400MG TABLET PO SCH (09:16)
[2017-11-12] MEDS: AMLODIPINE 5MG TABLET PO SCH ×2 (09:16→21:28)
[2017-11-12] MEDS: INSULIN GLARGINE UD 100 UNITS/ML SYR SUBCUT SCH ×2 (09:18→21:29)
[2017-11-12] MEDS: MUPIROCIN 2% OINT 22GM TOP SCH ×2 (09:18→17:24)
[2017-11-12] MEDS: NYSTATIN POWDER 15GM TOP SCH ×2 (09:19→17:24)
[2017-11-12] MEDS: LEVOFLOXACIN 250MG TABLET PO SCH (12:01)
[2017-11-12] MEDS: BLOOD SUGAR DIAGNOSTIC STRIP TEST SCH ×3 (12:06→21:28)
[2017-11-12 12:16] VITALS: BP 127/62
[2017-11-12 16:21] VITALS: BP 122/58
[2017-11-12 20:25] VITALS: BP 120/62
[2017-11-13] VITALS: BP 134/68
[2017-11-13] MEDS: BLOOD SUGAR DIAGNOSTIC STRIP TEST SCH ×4 (06:41→20:34)
[2017-11-13 08:00] VITALS: BP 126/62
[2017-11-13] MEDS: INSULIN LISPRO 100 UNITS/ML SUBCUT SCH ×4 (08:10→20:34)
[2017-11-13] MEDS: MAGNESIUM OXIDE 400MG TABLET PO SCH (08:19)
[2017-11-13] MEDS: AMLODIPINE 5MG TABLET PO SCH ×2 (08:19→20:34)
[2017-11-13] MEDS: MUPIROCIN 2% OINT 22GM TOP SCH ×2 (09:00→16:51)
[2017-11-13] MEDS: NYSTATIN POWDER 15GM TOP SCH ×2 (09:00→16:51)
[2017-11-13] MEDS: LEVOFLOXACIN 250MG TABLET PO SCH (10:44)
[2017-11-13] MEDS: INSULIN GLARGINE UD 100 UNITS/ML SYR SUBCUT SCH ×2 (10:46→21:11)
[2017-11-13 12:00] VITALS: BP 120/71
[2017-11-13 15:46] VITALS: BP 114/64
[2017-11-13 20:22] VITALS: BP 114/54
[2017-11-13 23:49] VITALS: BP 124/72
[2017-11-14 04:00] VITALS: BP 125/60
[2017-11-14] MEDS: BLOOD SUGAR DIAGNOSTIC STRIP TEST SCH ×4 (06:19→21:00)
[2017-11-14 08:00] VITALS: BP 122/61
[2017-11-14] MEDS: INSULIN LISPRO 100 UNITS/ML SUBCUT SCH ×4 (08:10→21:00)
[2017-11-14] MEDS: AMLODIPINE 5MG TABLET PO SCH ×2 (08:34→22:19)
[2017-11-14] MEDS: MAGNESIUM OXIDE 400MG TABLET PO SCH (08:34)
[2017-11-14] MEDS: MUPIROCIN 2% OINT 22GM TOP SCH ×2 (08:34→16:42)
[2017-11-14] MEDS: NYSTATIN POWDER 15GM TOP SCH ×2 (09:00→16:42)
[2017-11-14 09:39] LABS: BASOPHILS % 1.3 % (0.0-2.0); HEMATOCRIT. 27.6 % (42.0-52.0); HEMOGLOBIN. 9.1 g/dL (14.0-18.0); MEAN CORPUSCULAR HEMOGLOBIN 29.2 pg (28.0-32.0); MEAN CORPUSCULAR VOLUME 88.8 fL (80.0-94.0); MEAN PLATELET VOLUME 7.8 fl (7.4-10.4); MONOCYTES % 9.1 % (2.0-8.0); NEUTROPHILS % 78.6 % (40.0-76.0); PLATELET 263 x1000/uL (130-400); RED BLOOD CELL COUNT 3.11 mill/uL (4.7-6.1); RED CELL DISTRIBUTION WIDTH 19.2 % (11.6-14.6)
[2017-11-14 10:00] LABS: CHLORIDE 100 mEq/L (98-107)
[2017-11-14 10:05] LABS: PHOSPHORUS 3.9 mg/dL (2.5-4.9)
[2017-11-14] MEDS: INSULIN GLARGINE UD 100 UNITS/ML SYR SUBCUT SCH ×2 (10:52→22:20)
[2017-11-14] MEDS: LEVOFLOXACIN 250MG TABLET PO SCH (11:35)
[2017-11-14 12:00] VITALS: BP 120/58
[2017-11-14 16:00] VITALS: BP 121/61
[2017-11-14 20:00] VITALS: BP 122/60
[2017-11-15] VITALS: BP 123/65
[2017-11-15 04:00] VITALS: BP 118/66
[2017-11-15] MEDS: BLOOD SUGAR DIAGNOSTIC STRIP TEST SCH ×4 (06:46→21:10)
[2017-11-15 08:00] VITALS: BP 116/62
[2017-11-15] MEDS: INSULIN LISPRO 100 UNITS/ML SUBCUT SCH ×4 (08:10→21:14)
[2017-11-15] MEDS: AMLODIPINE 5MG TABLET PO SCH ×2 (09:24→21:13)
[2017-11-15] MEDS: MAGNESIUM OXIDE 400MG TABLET PO SCH (09:24)
[2017-11-15] MEDS: MUPIROCIN 2% OINT 22GM TOP SCH ×2 (09:26→17:00)
[2017-11-15] MEDS: INSULIN GLARGINE UD 100 UNITS/ML SYR SUBCUT SCH ×2 (09:26→21:15)
[2017-11-15] MEDS: NYSTATIN POWDER 15GM TOP SCH ×2 (09:28→17:00)
[2017-11-15 12:00] VITALS: BP 120/50
[2017-11-15] MEDS: LEVOFLOXACIN 250MG TABLET PO SCH (12:07)
[2017-11-15 16:00] VITALS: BP 119/68
[2017-11-15 20:00] VITALS: BP 116/60
[2017-11-16 04:00] VITALS: BP 123/63
[2017-11-16] MEDS: BLOOD SUGAR DIAGNOSTIC STRIP TEST SCH ×4 (05:14→21:46)
[2017-11-16 08:00] VITALS: BP 119/66
[2017-11-16] MEDS: INSULIN LISPRO 100 UNITS/ML SUBCUT SCH ×4 (08:03→21:00)
[2017-11-16] MEDS: MAGNESIUM OXIDE 400MG TABLET PO SCH (09:00)
[2017-11-16] MEDS: AMLODIPINE 5MG TABLET PO SCH ×2 (09:12→21:44)
[2017-11-16] MEDS: MUPIROCIN 2% OINT 22GM TOP SCH ×2 (09:13→17:00)
[2017-11-16] MEDS: NYSTATIN POWDER 15GM TOP SCH ×2 (09:13→17:00)
[2017-11-16] MEDS: INSULIN GLARGINE UD 100 UNITS/ML SYR SUBCUT SCH ×2 (10:00→21:45)
[2017-11-16 12:00] VITALS: BP 121/63
[2017-11-16] MEDS: LEVOFLOXACIN 250MG TABLET PO SCH (13:40)
[2017-11-16 16:00] VITALS: BP 136/68
[2017-11-16 20:00] VITALS: BP 129/67
[2017-11-16] MEDS: ENOXAPARIN 30MG/0.3ML SYR SUBCUT SCH (21:44)
[2017-11-17] VITALS (7 sets, daily range): BP systolic 112–128; BP diastolic 48–71
[2017-11-17] MEDS: MAGNESIUM OXIDE 400MG TABLET PO SCH (09:04)
[2017-11-17] MEDS: MUPIROCIN 2% OINT 22GM TOP SCH ×2 (09:04→16:54)
[2017-11-17] MEDS: NYSTATIN POWDER 15GM TOP SCH ×2 (09:04→16:54)
[2017-11-17] MEDS: AMLODIPINE 5MG TABLET PO SCH ×2 (09:04→21:30)
[2017-11-17] MEDS: ENOXAPARIN 30MG/0.3ML SYR SUBCUT SCH ×2 (09:04→21:42)
[2017-11-17] MEDS: INSULIN GLARGINE UD 100 UNITS/ML SYR SUBCUT SCH ×2 (10:49→23:38)
[2017-11-17] MEDS: LEVOFLOXACIN 250MG TABLET PO SCH (10:52)
[2017-11-18] VITALS (7 sets, daily range): BP systolic 101–118; BP diastolic 52–59
[2017-11-18] MEDS: AMLODIPINE 5MG TABLET PO SCH ×2 (09:20→21:00)
[2017-11-18] MEDS: ENOXAPARIN 30MG/0.3ML SYR SUBCUT SCH ×2 (09:20→22:53)
[2017-11-18] MEDS: NYSTATIN POWDER 15GM TOP SCH ×2 (09:21→17:17)
[2017-11-18] MEDS: MUPIROCIN 2% OINT 22GM TOP SCH ×2 (09:21→17:17)
[2017-11-18] MEDS: INSULIN GLARGINE UD 100 UNITS/ML SYR SUBCUT SCH (10:02)
[2017-11-18] MEDS: LEVOFLOXACIN 250MG TABLET PO SCH (10:56)
[2017-11-18 11:26] LABS: INR 1.3; PROTHROMBIN TIME 12.8 sec (9.1-11.1)
[2017-11-18] MEDS: ACETAMINOPHEN 325MG TABLET PO PRN (17:59)
[2017-11-18] MEDS ORDERED: WARFARIN SODIUM 4MG TABLET PO SCH (18:00)
[2017-11-19] VITALS: BP 126/50
[2017-11-19 04:00] VITALS: BP 104/61
[2017-11-19 08:00] VITALS: BP 122/69
[2017-11-19 09:08] LABS: INR 1.2
[2017-11-19] MEDS: ENOXAPARIN 30MG/0.3ML SYR SUBCUT SCH ×2 (09:37→21:29)
[2017-11-19] MEDS: AMLODIPINE 5MG TABLET PO SCH ×2 (09:37→21:29)
[2017-11-19 12:00] VITALS: BP 129/61
[2017-11-19] MEDS ORDERED: LEVOFLOXACIN 250MG TABLET PO SCH (13:01)
[2017-11-19 16:00] VITALS: BP 124/58
[2017-11-19] MEDS ORDERED: WARFARIN SODIUM 5MG TABLET PO NR (18:00)
[2017-11-19 20:00] VITALS: BP 117/54
[2017-11-19] MEDS: ACETAMINOPHEN 325MG TABLET PO PRN (22:05)
[2017-11-20 04:00] VITALS: BP 110/54
[2017-11-20 07:36] LABS: INR 1.3; PROTHROMBIN TIME 12.7 sec (9.1-11.1)
[2017-11-20 08:00] VITALS: BP 113/55
[2017-11-20] MEDS: AMLODIPINE 5MG TABLET PO SCH ×2 (08:53→20:42)
[2017-11-20] MEDS: ENOXAPARIN 30MG/0.3ML SYR SUBCUT SCH ×2 (08:54→20:41)
[2017-11-20 12:00] VITALS: BP 113/59
[2017-11-20] MEDS: LEVOFLOXACIN 250MG TABLET PO SCH (17:43)
[2017-11-20] MEDS ORDERED: WARFARIN SODIUM 7.5MG TABLET PO SCH (18:00)
[2017-11-20 20:00] VITALS: BP 116/68
[2017-11-20] MEDS: ACETAMINOPHEN 325MG TABLET PO PRN (20:41)
[2017-11-21] MEDS: ACETAMINOPHEN 325MG TABLET PO PRN ×3 (03:00→23:25)
[2017-11-21 04:00] VITALS: BP 122/61
[2017-11-21 06:42] LABS: HEMATOCRIT. 27.9 % (42.0-52.0); HEMOGLOBIN. 9.3 g/dL (14.0-18.0); MEAN CORPUSCULAR HEMOGLOBIN 29.1 pg (28.0-32.0); MEAN CORPUSCULAR VOLUME 87.7 fL (80.0-94.0); MEAN PLATELET VOLUME 8.7 fl (7.4-10.4); PLATELET 233 x1000/uL (130-400); RED BLOOD CELL COUNT 3.19 mill/uL (4.7-6.1); RED CELL DISTRIBUTION WIDTH 18.6 % (11.6-14.6)
[2017-11-21 06:45] LABS: INR 1.3
[2017-11-21 08:00] VITALS: BP 105/51
[2017-11-21] MEDS: AMLODIPINE 5MG TABLET PO SCH ×2 (09:00→20:12)
[2017-11-21] MEDS: ENOXAPARIN 30MG/0.3ML SYR SUBCUT SCH ×2 (09:48→20:12)
[2017-11-21] MEDS: LEVOFLOXACIN 250MG TABLET PO SCH (10:23)
[2017-11-21 11:11] LABS: PLATELET ESTIMATE NORMAL
[2017-11-21 12:00] VITALS: BP 116/56
[2017-11-21 16:00] VITALS: BP 113/58
[2017-11-21] MEDS ORDERED: WARFARIN SODIUM 7.5MG TABLET PO SCH (18:00)
[2017-11-21 20:00] VITALS: BP 113/58
[2017-11-21 20:32] LABS: CHLORIDE 95 mEq/L (98-107)
[2017-11-22] VITALS: BP 114/54
[2017-11-22 04:00] VITALS: BP 103/56
[2017-11-22] MEDS: ACETAMINOPHEN 325MG TABLET PO PRN ×2 (05:48→16:29)
[2017-11-22 08:06] VITALS: BP 101/52
[2017-11-22 08:07] LABS: INR 1.5; PROTHROMBIN TIME 14.5 sec (9.1-11.1)
[2017-11-22] MEDS: AMLODIPINE 5MG TABLET PO SCH ×2 (09:00→21:00)
[2017-11-22] MEDS: ENOXAPARIN 30MG/0.3ML SYR SUBCUT SCH ×2 (09:36→21:00)
[2017-11-22] MEDS: LEVOFLOXACIN 250MG TABLET PO SCH (10:53)
[2017-11-22 12:00] VITALS: BP 109/51
[2017-11-22] MEDS: METRONIDAZOLE 500 MG PREMIX 100 ML IV SCH ×2 (15:59→22:00)
[2017-11-22 16:00] VITALS: BP 112/59
[2017-11-22] MEDS ORDERED: WARFARIN SODIUM 7.5MG TABLET PO SCH (18:00)
[2017-11-22 20:00] VITALS: BP 104/47
[2017-11-23] VITALS: BP 107/57
[2017-11-23 04:00] VITALS: BP 111/55
[2017-11-23] MEDS: METRONIDAZOLE 500 MG PREMIX 100 ML IV SCH ×3 (06:09→21:14)
[2017-11-23] MEDS: ACETAMINOPHEN 325MG TABLET PO PRN (06:14)
[2017-11-23 07:19] LABS: HEMATOCRIT. 26.1 % (42.0-52.0); HEMOGLOBIN. 8.6 g/dL (14.0-18.0); MEAN CORPUSCULAR HEMOGLOBIN 28.6 pg (28.0-32.0); MEAN CORPUSCULAR VOLUME 86.7 fL (80.0-94.0); MEAN PLATELET VOLUME 8.4 fl (7.4-10.4); PLATELET 235 x1000/uL (130-400); RED BLOOD CELL COUNT 3.01 mill/uL (4.7-6.1); RED CELL DISTRIBUTION WIDTH 18.2 % (11.6-14.6)
[2017-11-23 07:33] LABS: INR 1.8; PROTHROMBIN TIME 18.3 sec (9.1-11.1)
[2017-11-23 07:40] LABS: CHLORIDE 93 mEq/L (98-107)
[2017-11-23 07:48] LABS: PHOSPHORUS 2.8 mg/dL (2.5-4.9)
[2017-11-23 08:00] VITALS: BP 105/58
[2017-11-23] MEDS: AMLODIPINE 5MG TABLET PO SCH ×2 (09:00→21:15)
[2017-11-23] MEDS: ENOXAPARIN 30MG/0.3ML SYR SUBCUT SCH ×2 (09:22→21:14)
[2017-11-23] MEDS: LEVOFLOXACIN 250MG TABLET PO SCH (11:00)
[2017-11-23] MEDS: MORPHINE SULFATE 4 MG/ML CPJ (NOT FOR IM USE) IV PRN ×3 (11:01→22:16)
[2017-11-23 12:00] VITALS: BP 111/61
[2017-11-23 16:00] VITALS: BP 102/56
[2017-11-23 16:44] LABS: PLATELET ESTIMATE NORMAL
[2017-11-23] MEDS ORDERED: WARFARIN SODIUM 7.5MG TABLET PO SCH (18:00)
[2017-11-24 00:30] VITALS: BP 96/61
[2017-11-24 04:00] VITALS: BP 97/56
[2017-11-24] MEDS: MORPHINE SULFATE 4 MG/ML CPJ (NOT FOR IM USE) IV PRN ×3 (04:33→21:06)
[2017-11-24] MEDS: METRONIDAZOLE 500 MG PREMIX 100 ML IV SCH ×3 (05:59→23:20)
[2017-11-24 07:25] LABS: HEMOGLOBIN. 9.1 g/dL (14.0-18.0); MEAN CORPUSCULAR HEMOGLOBIN 28.3 pg (28.0-32.0); MEAN CORPUSCULAR VOLUME 87.2 fL (80.0-94.0); MEAN PLATELET VOLUME 8.3 fl (7.4-10.4); PLATELET 268 x1000/uL (130-400); RED BLOOD CELL COUNT 3.21 mill/uL (4.7-6.1); RED CELL DISTRIBUTION WIDTH 19.1 % (11.6-14.6)
[2017-11-24 07:41] LABS: CHLORIDE 91 mEq/L (98-107)
[2017-11-24 07:50] LABS: PHOSPHORUS 3.1 mg/dL (2.5-4.9)
[2017-11-24 08:09] LABS: INR 2.9; PROTHROMBIN TIME 28.2 sec (9.1-11.1)
[2017-11-24] MEDS: AMLODIPINE 5MG TABLET PO SCH ×2 (08:12→20:54)
[2017-11-24] MEDS: AZTREONAM 2 GM in DEXT 5% WATER 100 ML IV SCH ×2 (09:00→20:53)
[2017-11-24 10:56] LABS: PLATELET ESTIMATE NORMAL
[2017-11-24] MEDS: LEVOFLOXACIN 250MG TABLET PO SCH (11:00)
[2017-11-24 12:00] VITALS: BP 103/54
[2017-11-24] MEDS: ACETAMINOPHEN 325MG TABLET PO PRN (12:12)
[2017-11-24 16:00] VITALS: BP 110/58
[2017-11-24] MEDS ORDERED: WARFARIN SODIUM 3MG TABLET PO SCH (18:00)
[2017-11-24 20:00] VITALS: BP 112/62
[2017-11-24] MEDS: NYSTATIN/TRIAMCIN OINT 15GM TOP SCH (20:55)
[2017-11-24] MEDS: NYSTATIN POWDER 15GM TOP SCH (20:55)
[2017-11-25] VITALS: BP 119/64
[2017-11-25] MEDS: MORPHINE SULFATE 4 MG/ML CPJ (NOT FOR IM USE) IV PRN ×6 (01:22→22:44)
[2017-11-25 04:00] VITALS: BP 144/67
[2017-11-25] MEDS: METRONIDAZOLE 500 MG PREMIX 100 ML IV SCH ×3 (05:48→22:43)
[2017-11-25 07:22] LABS: INR 3.8; PROTHROMBIN TIME 37.5 sec (9.1-11.1)
[2017-11-25 08:00] VITALS: BP 104/61
[2017-11-25] MEDS: NYSTATIN POWDER 15GM TOP SCH ×3 (09:22→20:53)
[2017-11-25] MEDS: AZTREONAM 2 GM in DEXT 5% WATER 100 ML IV SCH ×2 (09:22→20:43)
[2017-11-25] MEDS: AMLODIPINE 5MG TABLET PO SCH (09:22)
[2017-11-25] MEDS: NYSTATIN/TRIAMCIN OINT 15GM TOP SCH ×3 (09:22→20:53)
[2017-11-25] MEDS: LEVOFLOXACIN 250MG TABLET PO SCH (11:48)
[2017-11-25 12:00] VITALS: BP 101/63
[2017-11-25 12:13] LABS: HEMATOCRIT. 26.5 % (42.0-52.0); HEMOGLOBIN. 8.9 g/dL (14.0-18.0); MEAN CORPUSCULAR HEMOGLOBIN 28.7 pg (28.0-32.0); MEAN CORPUSCULAR VOLUME 85.5 fL (80.0-94.0); MEAN PLATELET VOLUME 7.7 fl (7.4-10.4); PLATELET 261 x1000/uL (130-400); RED CELL DISTRIBUTION WIDTH 18.9 % (11.6-14.6)
[2017-11-25 12:45] LABS: PLATELET ESTIMATE NORMAL
[2017-11-25] MEDS: ACETAMINOPHEN 325MG TABLET PO PRN (12:53)
[2017-11-25 16:00] VITALS: BP 106/52
[2017-11-25] MEDS: SODIUM CHLORIDE 0.9% 1,000 ML IV SCH (18:35)
[2017-11-25 20:00] VITALS: BP 107/66
[2017-11-26] MEDS: MORPHINE SULFATE 4 MG/ML CPJ (NOT FOR IM USE) IV PRN ×4 (03:26→21:02)
[2017-11-26 04:00] VITALS: BP 107/59
[2017-11-26] MEDS: METRONIDAZOLE 500 MG PREMIX 100 ML IV SCH ×3 (05:19→22:47)
[2017-11-26] MEDS: SODIUM CHLORIDE 0.9% 1,000 ML IV SCH ×2 (05:19→16:27)
[2017-11-26 06:56] LABS: INR 3.8; PROTHROMBIN TIME 37.4 sec (9.1-11.1)
[2017-11-26 08:00] VITALS: BP 103/60
[2017-11-26] MEDS: AZTREONAM 2 GM in DEXT 5% WATER 100 ML IV SCH ×2 (09:54→20:40)
[2017-11-26] MEDS: NYSTATIN/TRIAMCIN OINT 15GM TOP SCH ×2 (09:57→20:41)
[2017-11-26] MEDS: NYSTATIN POWDER 15GM TOP SCH ×2 (09:57→20:41)
[2017-11-26] MEDS: LEVOFLOXACIN 250MG TABLET PO SCH (11:19)
[2017-11-26 12:00] VITALS: BP 111/63
[2017-11-26 16:00] VITALS: BP 111/57
[2017-11-26 16:05] LABS: HEMATOCRIT. 27.1 % (42.0-52.0); HEMOGLOBIN. 8.8 g/dL (14.0-18.0); MEAN CORPUSCULAR HEMOGLOBIN 28.3 pg (28.0-32.0); MEAN PLATELET VOLUME 7.6 fl (7.4-10.4); PLATELET 259 x1000/uL (130-400); RED BLOOD CELL COUNT 3.11 mill/uL (4.7-6.1); RED CELL DISTRIBUTION WIDTH 18.9 % (11.6-14.6)
[2017-11-26 16:30] LABS: PLATELET ESTIMATE NORMAL
[2017-11-26 20:00] VITALS: BP 116/60
[2017-11-27] MEDS: MORPHINE SULFATE 4 MG/ML CPJ (NOT FOR IM USE) IV PRN ×4 (01:53→22:29)
[2017-11-27 04:00] VITALS: BP 130/68
[2017-11-27] MEDS: METRONIDAZOLE 500 MG PREMIX 100 ML IV SCH ×3 (06:17→21:12)
[2017-11-27 07:02] LABS: HEMATOCRIT. 26.8 % (42.0-52.0); HEMOGLOBIN. 8.8 g/dL (14.0-18.0); INR 3.6; MEAN CORPUSCULAR HEMOGLOBIN 28.4 pg (28.0-32.0); MEAN CORPUSCULAR VOLUME 86.9 fL (80.0-94.0); MEAN PLATELET VOLUME 7.8 fl (7.4-10.4); PLATELET 266 x1000/uL (130-400); PROTHROMBIN TIME 35.8 sec (9.1-11.1); RED BLOOD CELL COUNT 3.09 mill/uL (4.7-6.1); RED CELL DISTRIBUTION WIDTH 19.1 % (11.6-14.6)
[2017-11-27 08:00] VITALS: BP 116/59
[2017-11-27 08:54] LABS: CHLORIDE 94 mEq/L (98-107)
[2017-11-27] MEDS: NYSTATIN/TRIAMCIN OINT 15GM TOP SCH ×2 (09:00→21:13)
[2017-11-27 09:03] LABS: PHOSPHORUS 2.8 mg/dL (2.5-4.9)
[2017-11-27] MEDS: AZTREONAM 2 GM in DEXT 5% WATER 100 ML IV SCH ×2 (09:26→21:12)
[2017-11-27] MEDS: SODIUM CHLORIDE 0.9% 1,000 ML IV SCH ×3 (09:26→21:12)
[2017-11-27] MEDS: NYSTATIN POWDER 15GM TOP SCH ×2 (09:27→21:13)
[2017-11-27] MEDS: LEVOFLOXACIN 250MG TABLET PO SCH (11:48)
[2017-11-27 12:00] VITALS: BP 104/53
[2017-11-27 13:51] LABS: PLATELET ESTIMATE NORMAL
[2017-11-27 16:00] VITALS: BP 113/58
[2017-11-27 23:47] VITALS: BP 112/61
[2017-11-28] VITALS (11 sets, daily range): BP systolic 90–129; BP diastolic 55–62
[2017-11-28] MEDS: METRONIDAZOLE 500 MG PREMIX 100 ML IV SCH ×3 (05:20→22:49)
[2017-11-28] MEDS: MORPHINE SULFATE 4 MG/ML CPJ (NOT FOR IM USE) IV PRN ×3 (05:22→21:38)
[2017-11-28] MEDS: SODIUM CHLORIDE 0.9% 1,000 ML IV SCH ×2 (05:23→17:33)
[2017-11-28 07:08] LABS: PROTHROMBIN TIME 45.5 sec (9.1-11.1)
[2017-11-28 07:14] LABS: INR 4.6
[2017-11-28] MEDS: AZTREONAM 2 GM in DEXT 5% WATER 100 ML IV SCH ×2 (09:25→21:29)
[2017-11-28] MEDS: NYSTATIN/TRIAMCIN OINT 15GM TOP SCH ×2 (09:25→21:00)
[2017-11-28] MEDS: NYSTATIN POWDER 15GM TOP SCH ×2 (09:25→21:00)
[2017-11-28 11:10] LABS: HEMATOCRIT. 23.5 % (42.0-52.0); HEMOGLOBIN. 7.5 g/dL (14.0-18.0); MEAN CORPUSCULAR HEMOGLOBIN 28.3 pg (28.0-32.0); MEAN CORPUSCULAR VOLUME 88.2 fL (80.0-94.0); MEAN PLATELET VOLUME 7.5 fl (7.4-10.4); PLATELET 219 x1000/uL (130-400); RED BLOOD CELL COUNT 2.67 mill/uL (4.7-6.1); RED CELL DISTRIBUTION WIDTH 18.9 % (11.6-14.6)
[2017-11-28 11:20] LABS: CHLORIDE 104 mEq/L (98-107)
[2017-11-28 13:50] LABS: PLATELET ESTIMATE NORMAL
[2017-11-28] MEDS: ACETAMINOPHEN 325MG TABLET PO PRN (14:20)
[2017-11-29] VITALS: BP 118/58
[2017-11-29] MEDS: SODIUM CHLORIDE 0.9% 1,000 ML IV SCH ×2 (02:01→13:38)
[2017-11-29 04:00] VITALS: BP 109/62
[2017-11-29] MEDS: MORPHINE SULFATE 4 MG/ML CPJ (NOT FOR IM USE) IV PRN ×4 (04:41→23:02)
[2017-11-29] MEDS: METRONIDAZOLE 500 MG PREMIX 100 ML IV SCH ×2 (06:26→13:38)
[2017-11-29 07:06] LABS: PROTHROMBIN TIME 40.7 sec (9.1-11.1)
[2017-11-29 07:13] LABS: INR 4.1
[2017-11-29 07:24] LABS: HEMATOCRIT. 30.1 % (42.0-52.0); HEMOGLOBIN. 9.7 g/dL (14.0-18.0); MEAN CORPUSCULAR HEMOGLOBIN 28.4 pg (28.0-32.0); MEAN CORPUSCULAR VOLUME 87.9 fL (80.0-94.0); MEAN PLATELET VOLUME 7.5 fl (7.4-10.4); PLATELET 279 x1000/uL (130-400); RED BLOOD CELL COUNT 3.42 mill/uL (4.7-6.1); RED CELL DISTRIBUTION WIDTH 18.8 % (11.6-14.6)
[2017-11-29 07:28] LABS: CHLORIDE 99 mEq/L (98-107)
[2017-11-29 08:00] VITALS: BP 117/63
[2017-11-29 08:33] LABS: PLATELET ESTIMATE NORMAL
[2017-11-29] MEDS: AZTREONAM 2 GM in DEXT 5% WATER 100 ML IV SCH ×2 (09:48→20:31)
[2017-11-29] MEDS: NYSTATIN POWDER 15GM TOP SCH ×2 (09:53→20:32)
[2017-11-29] MEDS: NYSTATIN/TRIAMCIN OINT 15GM TOP SCH ×2 (09:56→20:31)
[2017-11-29 12:00] VITALS: BP 121/57
[2017-11-29 16:00] VITALS: BP 107/70
[2017-11-29 20:00] VITALS: BP 117/61
[2017-11-30] VITALS: BP 109/56
[2017-11-30] MEDS: SODIUM CHLORIDE 0.9% 1,000 ML IV SCH ×2 (01:22→16:22)
[2017-11-30 04:00] VITALS: BP 130/64
[2017-11-30] MEDS: MORPHINE SULFATE 4 MG/ML CPJ (NOT FOR IM USE) IV PRN ×4 (04:36→23:05)
[2017-11-30 06:59] LABS: HEMATOCRIT. 29.1 % (42.0-52.0); HEMOGLOBIN. 9.6 g/dL (14.0-18.0); MEAN CORPUSCULAR HEMOGLOBIN 28.9 pg (28.0-32.0); MEAN CORPUSCULAR VOLUME 87.7 fL (80.0-94.0); MEAN PLATELET VOLUME 7.4 fl (7.4-10.4); PLATELET 291 x1000/uL (130-400); RED BLOOD CELL COUNT 3.32 mill/uL (4.7-6.1); RED CELL DISTRIBUTION WIDTH 18.8 % (11.6-14.6)
[2017-11-30 07:05] LABS: CHLORIDE 102 mEq/L (98-107)
[2017-11-30 08:00] VITALS: BP 115/63
[2017-11-30] MEDS: NYSTATIN POWDER 15GM TOP SCH ×2 (09:45→23:05)
[2017-11-30] MEDS: AZTREONAM 2 GM in DEXT 5% WATER 100 ML IV SCH ×2 (09:45→23:05)
[2017-11-30] MEDS: NYSTATIN/TRIAMCIN OINT 15GM TOP SCH ×2 (09:45→23:05)
[2017-11-30 10:41] LABS: PLATELET ESTIMATE NORMAL
[2017-11-30 12:00] VITALS: BP 118/63
[2017-11-30 16:00] VITALS: BP 126/72
[2017-11-30 20:12] VITALS: BP 121/63
[2017-12-01] VITALS (7 sets, daily range): BP systolic 107–125; BP diastolic 55–78
[2017-12-01] MEDS: SODIUM CHLORIDE 0.9% 1,000 ML IV SCH ×2 (04:06→15:21)
[2017-12-01] MEDS: MORPHINE SULFATE 4 MG/ML CPJ (NOT FOR IM USE) IV PRN ×3 (04:07→21:12)
[2017-12-01 06:58] LABS: PROTHROMBIN TIME 39.7 sec (9.1-11.1)
[2017-12-01 07:01] LABS: HEMATOCRIT. 29.9 % (42.0-52.0); HEMOGLOBIN. 9.8 g/dL (14.0-18.0); MEAN CORPUSCULAR VOLUME 88.2 fL (80.0-94.0); MEAN PLATELET VOLUME 7.6 fl (7.4-10.4); PLATELET 282 x1000/uL (130-400); RED BLOOD CELL COUNT 3.38 mill/uL (4.7-6.1); RED CELL DISTRIBUTION WIDTH 19.1 % (11.6-14.6)
[2017-12-01 07:26] LABS: CHLORIDE 105 mEq/L (98-107)
[2017-12-01] MEDS: NYSTATIN/TRIAMCIN OINT 15GM TOP SCH ×2 (09:30→21:00)
[2017-12-01] MEDS: NYSTATIN POWDER 15GM TOP SCH ×2 (09:30→21:25)
[2017-12-01 12:34] LABS: PLATELET ESTIMATE NORMAL
[2017-12-01] MEDS ORDERED: BARIUM SULFATE 450ML ORAL SUSP PO SCH (19:00)
[2017-12-01] MEDS: AZTREONAM 2 GM in DEXT 5% WATER 100 ML IV SCH (20:42)
[2017-12-01 20:43] LABS: HEMATOCRIT. 33.4 % (42.0-52.0); HEMOGLOBIN. 10.7 g/dL (14.0-18.0); MEAN CORPUSCULAR HEMOGLOBIN 28.4 pg (28.0-32.0); MEAN CORPUSCULAR VOLUME 88.5 fL (80.0-94.0); MEAN PLATELET VOLUME 7.7 fl (7.4-10.4); PLATELET 303 x1000/uL (130-400); RED BLOOD CELL COUNT 3.78 mill/uL (4.7-6.1); RED CELL DISTRIBUTION WIDTH 19.7 % (11.6-14.6)
[2017-12-01 21:01] LABS: PLATELET ESTIMATE NORMAL
[2017-12-01] MEDS: METRONIDAZOLE 500 MG PREMIX 100 ML IV SCH (21:16)
[2017-12-01] MEDS: LINEZOLID 600 MG PREMIX 300 ML IV SCH (21:16)
[2017-12-01 22:55] LABS: CLARITY URINE CLOUDY (CLEAR); COLOR URINE YELLOW (YELLOW); KETONES URINE NEGATIVE (NEGATIVE); LEUKOCYTE ESTERASE URINE 1+ (NEGATIVE); NITRITE URINE NEGATIVE (NEGATIVE); OCCULT BLOOD URINE 1+ (NEGATIVE); PROTEIN URINE 2+ (NEGATIVE); SPECIFIC GRAVITY URINE 1.012 (1.005-1.030)
[2017-12-02] VITALS: BP 124/66
[2017-12-02] MEDS: MORPHINE SULFATE 4 MG/ML CPJ (NOT FOR IM USE) IV PRN ×5 (02:47→22:13)
[2017-12-02 04:00] VITALS: BP 104/68
[2017-12-02] MEDS: METRONIDAZOLE 500 MG PREMIX 100 ML IV SCH ×2 (06:30→15:57)
[2017-12-02] MEDS: DIATR MEGLU/DIATRIZOATE SOLN 30ML PO SCH ×2 (06:40→09:08)
[2017-12-02 08:00] VITALS: BP 102/54
[2017-12-02 08:25] LABS: HEMATOCRIT. 30.4 % (42.0-52.0); HEMOGLOBIN. 9.7 g/dL (14.0-18.0); MEAN CORPUSCULAR HEMOGLOBIN 28.3 pg (28.0-32.0); MEAN CORPUSCULAR VOLUME 88.4 fL (80.0-94.0); MEAN PLATELET VOLUME 7.5 fl (7.4-10.4); PLATELET 282 x1000/uL (130-400); RED BLOOD CELL COUNT 3.44 mill/uL (4.7-6.1); RED CELL DISTRIBUTION WIDTH 19.3 % (11.6-14.6)
[2017-12-02 08:31] LABS: INR 3.9; PROTHROMBIN TIME 38.7 sec (9.1-11.1)
[2017-12-02] MEDS: NYSTATIN/TRIAMCIN OINT 15GM TOP SCH ×2 (09:00→21:00)
[2017-12-02] MEDS: AZTREONAM 2 GM in DEXT 5% WATER 100 ML IV SCH ×2 (09:11→21:39)
[2017-12-02 09:33] LABS: CHLORIDE 105 mEq/L (98-107)
[2017-12-02 09:41] LABS: PHOSPHORUS 2.6 mg/dL (2.5-4.9)
[2017-12-02] MEDS: LINEZOLID 600 MG PREMIX 300 ML IV SCH ×2 (11:02→22:02)
[2017-12-02] MEDS: NYSTATIN POWDER 15GM TOP SCH ×2 (11:02→21:00)
[2017-12-02 12:00] VITALS: BP 120/63
[2017-12-02 13:48] LABS: PLATELET ESTIMATE NORMAL
[2017-12-02] MEDS: ACETAMINOPHEN 325MG TABLET PO PRN (14:06)
[2017-12-02 16:00] VITALS: BP 107/68
[2017-12-02] MEDS ORDERED: MAGNESIUM 2 G PREMIX 50 ML IV NR (20:00)
[2017-12-03] VITALS: BP 127/63
[2017-12-03] MEDS: METRONIDAZOLE 500 MG PREMIX 100 ML IV SCH ×4 (00:16→22:44)
[2017-12-03 04:00] VITALS: BP 116/69
[2017-12-03] MEDS: MORPHINE SULFATE 4 MG/ML CPJ (NOT FOR IM USE) IV PRN ×4 (04:01→22:52)
[2017-12-03 07:15] LABS: INR 3.8; PROTHROMBIN TIME 37.5 sec (9.1-11.1)
[2017-12-03 08:00] VITALS: BP 106/60
[2017-12-03] MEDS: ZINC SULFATE 220 MG ( 50 ) CAPSULE PO SCH (09:15)
[2017-12-03] MEDS: MULTIVITAMINS,THER W-MINERALS TABLET PO SCH (09:15)
[2017-12-03] MEDS: ASCORBIC ACID 250 MG TABLET PO SCH (09:15)
[2017-12-03] MEDS: AZTREONAM 2 GM in DEXT 5% WATER 100 ML IV SCH ×2 (09:16→22:44)
[2017-12-03] MEDS: LINEZOLID 600 MG PREMIX 300 ML IV SCH ×2 (09:17→22:45)
[2017-12-03] MEDS: NYSTATIN/TRIAMCIN OINT 15GM TOP SCH ×2 (09:22→22:44)
[2017-12-03] MEDS: NYSTATIN POWDER 15GM TOP SCH ×2 (09:22→22:43)
[2017-12-03 12:00] VITALS: BP 114/60
[2017-12-03 16:00] VITALS: BP 119/63
[2017-12-03] MEDS ORDERED: MAGNESIUM 2 G PREMIX 50 ML IV NR (18:00)
[2017-12-04] VITALS: BP 116/60
[2017-12-04 04:00] VITALS: BP 121/59
[2017-12-04] MEDS: MORPHINE SULFATE 4 MG/ML CPJ (NOT FOR IM USE) IV PRN ×3 (05:06→20:27)
[2017-12-04] MEDS: METRONIDAZOLE 500 MG PREMIX 100 ML IV SCH ×3 (05:06→21:44)
[2017-12-04 07:16] LABS: INR 3.2; PROTHROMBIN TIME 31.5 sec (9.1-11.1)
[2017-12-04] MEDS: NYSTATIN/TRIAMCIN OINT 15GM TOP SCH ×2 (07:56→20:45)
[2017-12-04 08:00] VITALS: BP 119/62
[2017-12-04] MEDS: LINEZOLID 600 MG PREMIX 300 ML IV SCH ×2 (09:08→20:31)
[2017-12-04] MEDS: AZTREONAM 2 GM in DEXT 5% WATER 100 ML IV SCH ×2 (09:08→20:27)
[2017-12-04] MEDS: MULTIVITAMINS,THER W-MINERALS TABLET PO SCH (09:09)
[2017-12-04] MEDS: ZINC SULFATE 220 MG ( 50 ) CAPSULE PO SCH (09:09)
[2017-12-04] MEDS: NYSTATIN POWDER 15GM TOP SCH ×2 (09:09→20:45)
[2017-12-04] MEDS: ASCORBIC ACID 250 MG TABLET PO SCH (09:09)
[2017-12-04 12:00] VITALS: BP 124/71
[2017-12-04 16:00] VITALS: BP 109/66
[2017-12-04 20:00] VITALS: BP 119/69
[2017-12-05] VITALS: BP 126/73
[2017-12-05] MEDS: MORPHINE SULFATE 4 MG/ML CPJ (NOT FOR IM USE) IV PRN ×4 (04:15→22:22)
[2017-12-05] MEDS: METRONIDAZOLE 500 MG PREMIX 100 ML IV SCH ×3 (05:12→21:58)
[2017-12-05 07:11] LABS: INR 3.3; PROTHROMBIN TIME 32.1 sec (9.1-11.1)
[2017-12-05 08:00] VITALS: BP 110/63
[2017-12-05] MEDS: NYSTATIN/TRIAMCIN OINT 15GM TOP SCH ×2 (09:00→22:00)
[2017-12-05] MEDS: LINEZOLID 600 MG PREMIX 300 ML IV SCH ×2 (09:00→21:58)
[2017-12-05] MEDS: NYSTATIN POWDER 15GM TOP SCH ×2 (09:00→22:00)
[2017-12-05] MEDS: ASCORBIC ACID 250 MG TABLET PO SCH (09:00)
[2017-12-05] MEDS: AZTREONAM 2 GM in DEXT 5% WATER 100 ML IV SCH ×2 (10:14→21:57)
[2017-12-05] MEDS: ZINC SULFATE 220 MG ( 50 ) CAPSULE PO SCH (10:16)
[2017-12-05] MEDS: MULTIVITAMINS,THER W-MINERALS TABLET PO SCH (10:16)
[2017-12-05 12:00] VITALS: BP 139/73
[2017-12-05 16:00] VITALS: BP 133/72
[2017-12-05 20:00] VITALS: BP 117/70
[2017-12-06] VITALS (7 sets, daily range): BP systolic 108–152; BP diastolic 55–76
[2017-12-06] MEDS: METRONIDAZOLE 500 MG PREMIX 100 ML IV SCH ×3 (05:16→23:03)
[2017-12-06] MEDS: MORPHINE SULFATE 4 MG/ML CPJ (NOT FOR IM USE) IV PRN ×4 (05:17→23:10)
[2017-12-06 07:54] LABS: INR 3.2; PROTHROMBIN TIME 31.8 sec (9.1-11.1)
[2017-12-06] MEDS: LINEZOLID 600 MG PREMIX 300 ML IV SCH ×2 (08:04→22:59)
[2017-12-06] MEDS: ZINC SULFATE 220 MG ( 50 ) CAPSULE PO SCH (08:04)
[2017-12-06] MEDS: AZTREONAM 2 GM in DEXT 5% WATER 100 ML IV SCH ×2 (08:04→20:24)
[2017-12-06] MEDS: MULTIVITAMINS,THER W-MINERALS TABLET PO SCH (08:04)
[2017-12-06] MEDS: ASCORBIC ACID 250 MG TABLET PO SCH (08:04)
[2017-12-06] MEDS: NYSTATIN/TRIAMCIN OINT 15GM TOP SCH ×2 (08:06→21:00)
[2017-12-06] MEDS: NYSTATIN POWDER 15GM TOP SCH ×2 (08:06→21:00)
[2017-12-06 17:02] LABS: BASOPHILS % 0.7 % (0.0-2.0); EOSINOPHILS % 1.7 % (0.0-5.0); HEMATOCRIT. 31.7 % (42.0-52.0); HEMOGLOBIN. 10.2 g/dL (14.0-18.0); LYMPHOCYTES % 7.8 % (20.0-50.0); MEAN CORPUSCULAR HEMOGLOBIN 28.9 pg (28.0-32.0); MEAN CORPUSCULAR VOLUME 89.4 fL (80.0-94.0); MEAN PLATELET VOLUME 7.6 fl (7.4-10.4); MONOCYTES % 5.4 % (2.0-8.0); NEUTROPHILS % 84.4 % (40.0-76.0); PLATELET 273 x1000/uL (130-400); RED BLOOD CELL COUNT 3.55 mill/uL (4.7-6.1); RED CELL DISTRIBUTION WIDTH 20.5 % (11.6-14.6)
[2017-12-06 17:21] LABS: CHLORIDE 104 mEq/L (98-107)
[2017-12-07 04:05] VITALS: BP 135/70
[2017-12-07] MEDS: METRONIDAZOLE 500 MG PREMIX 100 ML IV SCH ×3 (05:22→20:57)
[2017-12-07] MEDS: MORPHINE SULFATE 4 MG/ML CPJ (NOT FOR IM USE) IV PRN ×4 (05:23→21:10)
[2017-12-07 07:54] LABS: INR 2.8; PROTHROMBIN TIME 28.1 sec (9.1-11.1)
[2017-12-07 07:57] LABS: HEMATOCRIT. 27.7 % (42.0-52.0); HEMOGLOBIN. 9.1 g/dL (14.0-18.0); MEAN CORPUSCULAR HEMOGLOBIN 29.3 pg (28.0-32.0); MEAN CORPUSCULAR VOLUME 88.9 fL (80.0-94.0); MEAN PLATELET VOLUME 7.5 fl (7.4-10.4); PLATELET 274 x1000/uL (130-400); RED BLOOD CELL COUNT 3.11 mill/uL (4.7-6.1); RED CELL DISTRIBUTION WIDTH 19.8 % (11.6-14.6)
[2017-12-07 08:00] VITALS: BP 110/68
[2017-12-07] MEDS: AZTREONAM 2 GM in DEXT 5% WATER 100 ML IV SCH ×2 (08:03→20:56)
[2017-12-07] MEDS: ZINC SULFATE 220 MG ( 50 ) CAPSULE PO SCH (08:03)
[2017-12-07] MEDS: MULTIVITAMINS,THER W-MINERALS TABLET PO SCH (08:03)
[2017-12-07] MEDS: ASCORBIC ACID 250 MG TABLET PO SCH (08:03)
[2017-12-07] MEDS: LINEZOLID 600 MG PREMIX 300 ML IV SCH ×2 (08:04→20:56)
[2017-12-07] MEDS: NYSTATIN/TRIAMCIN OINT 15GM TOP SCH ×2 (08:04→21:15)
[2017-12-07] MEDS: NYSTATIN POWDER 15GM TOP SCH ×2 (08:04→21:15)
[2017-12-07 09:20] LABS: CHLORIDE 104 mEq/L (98-107)
[2017-12-07 10:40] LABS: PLATELET ESTIMATE NORMAL
[2017-12-07 12:00] VITALS: BP 119/64
[2017-12-07 16:00] VITALS: BP 116/64
[2017-12-07] MEDS ORDERED: WARFARIN SODIUM 2.5MG TABLET PO NR (18:00)
[2017-12-07] MEDS ORDERED: METHYL SALICYLATE/MENTHOL CREAM 85GM TOP PRN (18:45)
[2017-12-07 20:00] VITALS: BP 130/70
[2017-12-08 00:01] VITALS: BP 132/71
[2017-12-08] MEDS: MORPHINE SULFATE 4 MG/ML CPJ (NOT FOR IM USE) IV PRN ×4 (01:00→22:01)
[2017-12-08] MEDS: LINEZOLID 600 MG PREMIX 300 ML IV SCH ×2 (01:55→08:31)
[2017-12-08 04:00] VITALS: BP 128/71
[2017-12-08] MEDS: METRONIDAZOLE 500 MG PREMIX 100 ML IV SCH ×3 (05:19→22:00)
[2017-12-08 06:13] LABS: INR 2.4
[2017-12-08 08:00] VITALS: BP 114/69
[2017-12-08] MEDS: ASCORBIC ACID 250 MG TABLET PO SCH (08:31)
[2017-12-08] MEDS: MULTIVITAMINS,THER W-MINERALS TABLET PO SCH (08:31)
[2017-12-08] MEDS: ZINC SULFATE 220 MG ( 50 ) CAPSULE PO SCH (08:31)
[2017-12-08] MEDS: AZTREONAM 2 GM in DEXT 5% WATER 100 ML IV SCH ×2 (08:31→22:00)
[2017-12-08] MEDS: NYSTATIN/TRIAMCIN OINT 15GM TOP SCH ×2 (08:34→22:04)
[2017-12-08] MEDS: NYSTATIN POWDER 15GM TOP SCH ×2 (08:34→22:03)
[2017-12-08 12:00] VITALS: BP 128/68
[2017-12-08 16:00] VITALS: BP 123/61
[2017-12-08 20:00] VITALS: BP 128/71
[2017-12-09] VITALS: BP 126/74
[2017-12-09] MEDS ORDERED: MORPHINE SULFATE 4 MG/ML CPJ (NOT FOR IM USE) IV NR (03:30)
[2017-12-09 04:00] VITALS: BP 120/68
[2017-12-09 05:54] LABS: INR 2.2; PROTHROMBIN TIME 22.3 sec (9.1-11.1)
[2017-12-09 08:00] VITALS: BP 119/66
[2017-12-09] MEDS: ZINC SULFATE 220 MG ( 50 ) CAPSULE PO SCH (09:01)
[2017-12-09] MEDS: MULTIVITAMINS,THER W-MINERALS TABLET PO SCH (09:01)
[2017-12-09] MEDS: ASCORBIC ACID 250 MG TABLET PO SCH (09:02)
[2017-12-09] MEDS ORDERED: BUPIVACAINE HCL 0.5% (5MG/ML) 50ML ONE (09:51)
[2017-12-09] MEDS ORDERED: NORMAL SALINE 0.9% 10 ML SYR ONE (09:51)
[2017-12-09] MEDS ORDERED: BACITRACIN 50,000 UNITS/VIAL ONE (09:52)
[2017-12-09] MEDS ORDERED: ROCURONIUM BROMIDE 10MG/ML VIAL 5ML IV ONE (10:13)
[2017-12-09] MEDS ORDERED: NEOSTIGMINE METHYLSULFATE 1MG/ML 10 ML VIAL ONE (10:13)
[2017-12-09] MEDS ORDERED: FENTANYL CITRATE/PF 50MCG/ML 2ML VIAL ONE (10:13)
[2017-12-09] MEDS ORDERED: MIDAZOLAM HCL 2 MG/2 ML VIAL ONE (10:14)
[2017-12-09] MEDS ORDERED: GLYCOPYRROLATE 0.2 MG/ML 2ML VIAL ONE (10:14)
[2017-12-09] MEDS ORDERED: PROPOFOL 200MG/20ML VIAL IV ONE (10:14)
[2017-12-09] MEDS ORDERED: ONDANSETRON HCL 4MG/2ML INJ IV PRN (10:15)
[2017-12-09] MEDS ORDERED: MEPERIDINE HCL/PF 25MG/ML CPJ IV PRN (10:15)
[2017-12-09] MEDS ORDERED: HYDROMORPHONE HCL/PF 2MG/ML CPJ IV PRN (10:15)
[2017-12-09] MEDS ORDERED: LABETALOL 5MG/ML SYR 20 MG/4 ML SYRINGE IV PRN (10:15)
[2017-12-09] MEDS ORDERED: ONDANSETRON HCL 4MG/2ML INJ ONE (11:24)
[2017-12-09] MEDS ORDERED: DEXAMETHASONE 4MG/ML 1ML VIAL ONE (11:24)
[2017-12-09 15:20] VITALS: BP 92/57
[2017-12-09] MEDS ORDERED: LINEZOLID 600 MG PREMIX 300 ML IV SCH (18:00)
[2017-12-09 20:00] VITALS: BP 92/61
[2017-12-09] MEDS: SODIUM CHLORIDE 0.9% 1,000 ML IV SCH (22:25)
[2017-12-09] MEDS: AZTREONAM 2 GM in DEXT 5% WATER 100 ML IV SCH (22:25)
[2017-12-09] MEDS: MORPHINE SULFATE 4 MG/ML CPJ (NOT FOR IM USE) IV PRN (22:25)
[2017-12-09] MEDS: METRONIDAZOLE 500 MG PREMIX 100 ML IV SCH (23:17)
[2017-12-10] VITALS: BP 119/68
[2017-12-10] MEDS: LINEZOLID 600 MG PREMIX 300 ML IV SCH ×3 (00:44→20:36)
[2017-12-10] MEDS: MORPHINE SULFATE 4 MG/ML CPJ (NOT FOR IM USE) IV PRN ×7 (00:45→22:36)
[2017-12-10 04:00] VITALS: BP 100/60
[2017-12-10] MEDS: METRONIDAZOLE 500 MG PREMIX 100 ML IV SCH ×3 (06:17→22:37)
[2017-12-10 08:00] VITALS: BP 107/55
[2017-12-10] MEDS: AZTREONAM 2 GM in DEXT 5% WATER 100 ML IV SCH ×2 (08:38→20:34)
[2017-12-10] MEDS: SODIUM CHLORIDE 0.9% 1,000 ML IV SCH ×2 (08:38→22:37)
[2017-12-10] MEDS: ASCORBIC ACID 250 MG TABLET PO SCH (08:38)
[2017-12-10] MEDS: ZINC SULFATE 220 MG ( 50 ) CAPSULE PO SCH (08:39)
[2017-12-10] MEDS: MULTIVITAMINS,THER W-MINERALS TABLET PO SCH (08:39)
[2017-12-10 12:00] VITALS: BP 109/57
[2017-12-10 16:00] VITALS: BP 108/61
[2017-12-10 20:00] VITALS: BP 116/59
[2017-12-10 21:07] LABS: CHLORIDE 103 mEq/L (98-107)
[2017-12-11] VITALS (66 sets, daily range): BP systolic 58–144; BP diastolic 24–86
[2017-12-11] MEDS: MORPHINE SULFATE 4 MG/ML CPJ (NOT FOR IM USE) IV PRN ×3 (00:53→16:18)
[2017-12-11 05:42] LABS: BASOPHILS % 0.4 % (0.0-2.0); EOSINOPHILS % 0.2 % (0.0-5.0); LYMPHOCYTES % 11.7 % (20.0-50.0); MEAN CORPUSCULAR HEMOGLOBIN 30.1 pg (28.0-32.0); MEAN CORPUSCULAR VOLUME 95.3 fL (80.0-94.0); MEAN PLATELET VOLUME 7.7 fl (7.4-10.4); MONOCYTES % 4.7 % (2.0-8.0); PLATELET 344 x1000/uL (130-400); RED BLOOD CELL COUNT 1.76 mill/uL (4.7-6.1)
[2017-12-11 05:47] LABS: HEMATOCRIT. 16.8 % (42.0-52.0); HEMOGLOBIN. 5.3 g/dL (14.0-18.0)
[2017-12-11] MEDS ORDERED: SODIUM CHLORIDE 0.9% 1,000 ML IV ONE (06:30)
[2017-12-11] MEDS: METRONIDAZOLE 500 MG PREMIX 100 ML IV SCH ×3 (07:00→22:45)
[2017-12-11 08:04] LABS: CHLORIDE 104 mEq/L (98-107)
[2017-12-11 08:09] LABS: PHOSPHORUS 5.6 mg/dL (2.5-4.9)
[2017-12-11 08:18] LABS: BG BASE EXCESS -11.7 mmol/L (-2.0-2.0); BG CARBOXYHEMOGLOBIN 0.5 % (0.5-1.5); BG DEOXYHEMOGLOBIN 1.7 % (0.0-5.0); BG FRACTION INSPIRED OXYGEN 28; BG HCO3 ACT 14.2 mmol/L (22.0-26.0); BG METHEMOGLOBIN 0.4 % (0.0-1.5); BG OXYGEN SATURATION 98.3 % (92.0-98.5); BG OXYHEMOGLOBIN 97.4 % (94.0-97.0); BG PCO2 32.3 mmHg (35.0-45.0); BG PH 7.262 (7.350-7.450); BG PO2 135.3 mmHg (75.0-100.0); BG SAMPLE SITE RIGHT RADIAL; BG TOTAL HEMOGLOBIN 5.4 g/dL (12.0-18.0); BG VENT MODE NASAL CANNULA
[2017-12-11] MEDS ORDERED: DEXTROSE 50% WATER 50ML SYRINGE IV SCH (08:30)
[2017-12-11] MEDS ORDERED: CALCIUM GLUCONATE 100MG/ML 10ML VIAL IV SCH (08:30)
[2017-12-11] MEDS ORDERED: DEXTROSE 50% WATER 50ML SYRINGE IV ONE (08:30)
[2017-12-11] MEDS ORDERED: INSULIN REGULAR (HUMULIN R) 300UNITS/3ML SUBCUT SCH (08:30)
[2017-12-11] MEDS: SODIUM CHLORIDE 0.9% 1,000 ML IV SCH ×3 (09:00→19:50)
[2017-12-11] MEDS: NOREPINEPHRINE 8 MG in DEXT 5% WATER 242 ML IV PRN (09:01)
[2017-12-11] MEDS: AZTREONAM 2 GM in DEXT 5% WATER 100 ML IV SCH ×2 (09:39→20:21)
[2017-12-11] MEDS: LINEZOLID 600 MG PREMIX 300 ML IV SCH ×2 (10:49→20:21)
[2017-12-11] MEDS: MULTIVITAMINS,THER W-MINERALS TABLET PO SCH (11:05)
[2017-12-11] MEDS: ZINC SULFATE 220 MG ( 50 ) CAPSULE PO SCH (11:05)
[2017-12-11] MEDS ORDERED: DEXTROSE 50% WATER 50ML SYRINGE IV PRN (12:00)
[2017-12-11] MEDS: BLOOD SUGAR DIAGNOSTIC STRIP TEST SCH ×3 (12:18→20:58)
[2017-12-11] MEDS: INSULIN LISPRO 100 UNITS/ML SUBCUT SCH ×3 (13:00→21:02)
[2017-12-11] MEDS ORDERED: DIGOXIN 500MCG/2ML AMP IV NR (13:30)
[2017-12-11] MEDS ORDERED: DIGOXIN 500MCG/2ML AMP IV SCH ×2 (15:00→17:00)
[2017-12-11] MEDS: ASCORBIC ACID 250 MG TABLET PO SCH (15:10)
[2017-12-11] MEDS ORDERED: DIGOXIN 500MCG/2ML AMP IV PRN (15:30)
[2017-12-11] MEDS ORDERED: DESMOPRESSIN ACETATE IV NR (16:45)
[2017-12-11] MEDS ORDERED: SODIUM CHLORIDE 0.9% IV NR (16:45)
[2017-12-11 16:55] LABS: HEMATOCRIT 26.5 % (42.0-52.0); HEMOGLOBIN 8.8 g/dL (14.0-18.0)
[2017-12-11 17:00] LABS: INR 2.3; PARTIAL THROMBOPLASTIN TIME 52.3 sec (23.4-31.0)
[2017-12-11] MEDS ORDERED: SODIUM POLYSTYRENE SULFONATE 15 G/60 ML BOT PO NR (18:00)
[2017-12-11] MEDS: DIGOXIN 500MCG/2ML AMP IV SCH (18:00)
[2017-12-11 21:53] LABS: HEMATOCRIT 22.2 % (42.0-52.0); HEMOGLOBIN 7.3 g/dL (14.0-18.0)
[2017-12-12] VITALS (82 sets, daily range): BP systolic 102–153; BP diastolic 43–89
[2017-12-12] MEDS: MORPHINE SULFATE 4 MG/ML CPJ (NOT FOR IM USE) IV PRN ×4 (01:13→22:33)
[2017-12-12] MEDS: NOREPINEPHRINE 8 MG in DEXT 5% WATER 242 ML IV PRN (03:02)
[2017-12-12] MEDS: SODIUM CHLORIDE 0.9% 1,000 ML IV SCH ×4 (03:46→20:36)
[2017-12-12 04:50] LABS: HEMATOCRIT. 23.3 % (42.0-52.0); HEMOGLOBIN. 7.8 g/dL (14.0-18.0); MEAN CORPUSCULAR VOLUME 86.9 fL (80.0-94.0); MEAN PLATELET VOLUME 6.7 fl (7.4-10.4); PLATELET 147 x1000/uL (130-400); RED BLOOD CELL COUNT 2.68 mill/uL (4.7-6.1)
[2017-12-12 04:58] LABS: INR 1.8; PARTIAL THROMBOPLASTIN TIME 47.3 sec (23.4-31.0); PROTHROMBIN TIME 17.8 sec (9.1-11.1)
[2017-12-12] MEDS: METRONIDAZOLE 500 MG PREMIX 100 ML IV SCH ×3 (05:49→22:10)
[2017-12-12 06:55] LABS: PLATELET ESTIMATE NORMAL
[2017-12-12] MEDS: BLOOD SUGAR DIAGNOSTIC STRIP TEST SCH ×4 (07:50→22:00)
[2017-12-12] MEDS ORDERED: SODIUM POLYSTYRENE SULFONATE 15 G/60 ML BOT PO SCH (08:15)
[2017-12-12] MEDS: ASCORBIC ACID 250 MG TABLET PO SCH (08:43)
[2017-12-12] MEDS: ZINC SULFATE 220 MG ( 50 ) CAPSULE PO SCH (08:43)
[2017-12-12] MEDS: MULTIVITAMINS,THER W-MINERALS TABLET PO SCH (08:43)
[2017-12-12] MEDS: AZTREONAM 2 GM in DEXT 5% WATER 100 ML IV SCH ×2 (08:43→20:00)
[2017-12-12] MEDS: LINEZOLID 600 MG PREMIX 300 ML IV SCH ×2 (08:44→20:04)
[2017-12-12] MEDS: INSULIN LISPRO 100 UNITS/ML SUBCUT SCH ×4 (08:44→22:32)
[2017-12-12] MEDS: MIDODRINE HCL 5MG TABLET PO SCH ×3 (12:13→20:02)
[2017-12-12] MEDS: NYSTATIN POWDER 15GM TOP SCH ×2 (13:12→22:10)
[2017-12-12] MEDS: SULFAMETHOXAZOLE/TRIMETHOPRIM 800/160MG TABLET PO SCH (15:28)
[2017-12-12] MEDS: DIGOXIN 500MCG/2ML AMP IV SCH (18:07)
[2017-12-12 19:39] LABS: HEMATOCRIT 25.6 % (42.0-52.0); HEMOGLOBIN 8.5 g/dL (14.0-18.0); MEAN CORPUSCULAR HEMOGLOBIN 29.4 pg (28.0-32.0); MEAN CORPUSCULAR VOLUME 88.1 fL (80.0-94.0); PLATELET 91 x1000/uL (130-400); RED BLOOD CELL COUNT 2.91 mill/uL (4.7-6.1); RED CELL DISTRIBUTION WIDTH 18.4 % (11.6-14.6)
[2017-12-13] VITALS (28 sets, daily range): BP systolic 98–145; BP diastolic 53–77
[2017-12-13] MEDS: SODIUM CHLORIDE 0.9% 1,000 ML IV SCH ×3 (03:52→18:42)
[2017-12-13] MEDS: MORPHINE SULFATE 4 MG/ML CPJ (NOT FOR IM USE) IV PRN ×3 (05:15→20:44)
[2017-12-13] MEDS: SULFAMETHOXAZOLE/TRIMETHOPRIM 800/160MG TABLET PO SCH ×2 (05:15→17:28)
[2017-12-13] MEDS: METRONIDAZOLE 500 MG PREMIX 100 ML IV SCH ×3 (05:15→23:00)
[2017-12-13 05:54] LABS: INR 1.7; PROTHROMBIN TIME 17.1 sec (9.1-11.1)
[2017-12-13 05:58] LABS: CHLORIDE 107 mEq/L (98-107); HEMATOCRIT. 24.9 % (42.0-52.0); HEMOGLOBIN. 8.4 g/dL (14.0-18.0); MEAN CORPUSCULAR HEMOGLOBIN 29.8 pg (28.0-32.0); MEAN CORPUSCULAR VOLUME 87.9 fL (80.0-94.0); MEAN PLATELET VOLUME 7.4 fl (7.4-10.4); PLATELET 76 x1000/uL (130-400); RED BLOOD CELL COUNT 2.83 mill/uL (4.7-6.1); RED CELL DISTRIBUTION WIDTH 18.8 % (11.6-14.6)
[2017-12-13 06:25] LABS: DIGOXIN 0.9 ng/mL (0.9-2.0)
[2017-12-13] MEDS: NYSTATIN POWDER 15GM TOP SCH ×3 (06:40→23:03)
[2017-12-13] MEDS: AZTREONAM 2 GM in DEXT 5% WATER 100 ML IV SCH ×2 (07:38→23:00)
[2017-12-13] MEDS: BLOOD SUGAR DIAGNOSTIC STRIP TEST SCH ×4 (07:50→20:48)
[2017-12-13] MEDS: INSULIN LISPRO 100 UNITS/ML SUBCUT SCH ×4 (08:20→20:47)
[2017-12-13 08:30] LABS: PLATELET ESTIMATE DECREASED
[2017-12-13] MEDS: LINEZOLID 600 MG PREMIX 300 ML IV SCH ×2 (11:10→20:43)
[2017-12-13] MEDS: ZINC SULFATE 220 MG ( 50 ) CAPSULE PO SCH (11:24)
[2017-12-13] MEDS: ASCORBIC ACID 250 MG TABLET PO SCH (11:24)
[2017-12-13] MEDS: MULTIVITAMINS,THER W-MINERALS TABLET PO SCH (11:24)
[2017-12-13] MEDS: MIDODRINE HCL 5MG TABLET PO SCH ×3 (11:24→17:28)
[2017-12-13] MEDS: DIGOXIN 500MCG/2ML AMP IV SCH (17:27)
[2017-12-14] VITALS (17 sets, daily range): BP systolic 116–144; BP diastolic 57–80
[2017-12-14] MEDS: SODIUM CHLORIDE 0.9% 1,000 ML IV SCH (05:14)
[2017-12-14] MEDS: MORPHINE SULFATE 4 MG/ML CPJ (NOT FOR IM USE) IV PRN (05:15)
[2017-12-14] MEDS: METRONIDAZOLE 500 MG PREMIX 100 ML IV SCH ×3 (05:17→22:08)
[2017-12-14] MEDS: NYSTATIN POWDER 15GM TOP SCH ×3 (05:17→22:00)
[2017-12-14] MEDS: SULFAMETHOXAZOLE/TRIMETHOPRIM 800/160MG TABLET PO SCH ×2 (05:17→17:01)
[2017-12-14 05:48] LABS: INR 1.9
[2017-12-14] MEDS: AZTREONAM 2 GM in DEXT 5% WATER 100 ML IV SCH ×2 (07:48→22:08)
[2017-12-14] MEDS: LINEZOLID 600 MG PREMIX 300 ML IV SCH ×2 (07:49→22:06)
[2017-12-14 07:53] LABS: HEMATOCRIT. 25.3 % (42.0-52.0); HEMOGLOBIN. 8.5 g/dL (14.0-18.0); MEAN CORPUSCULAR HEMOGLOBIN 29.8 pg (28.0-32.0); MEAN CORPUSCULAR VOLUME 88.6 fL (80.0-94.0); MEAN PLATELET VOLUME 7.5 fl (7.4-10.4); PLATELET 78 x1000/uL (130-400); RED BLOOD CELL COUNT 2.85 mill/uL (4.7-6.1); RED CELL DISTRIBUTION WIDTH 19.3 % (11.6-14.6)
[2017-12-14 08:06] LABS: CHLORIDE 109 mEq/L (98-107)
[2017-12-14] MEDS: ASCORBIC ACID 250 MG TABLET PO SCH (08:24)
[2017-12-14] MEDS: MIDODRINE HCL 5MG TABLET PO SCH ×3 (08:24→17:01)
[2017-12-14] MEDS: MULTIVITAMINS,THER W-MINERALS TABLET PO SCH (08:24)
[2017-12-14] MEDS: ZINC SULFATE 220 MG ( 50 ) CAPSULE PO SCH (08:24)
[2017-12-14] MEDS: BLOOD SUGAR DIAGNOSTIC STRIP TEST SCH ×4 (08:25→21:00)
[2017-12-14] MEDS: INSULIN LISPRO 100 UNITS/ML SUBCUT SCH ×4 (08:36→21:00)
[2017-12-14 09:51] LABS: PLATELET ESTIMATE DECREASED
[2017-12-14] MEDS: DILTIAZEM HCL 30MG TABLET PO SCH ×2 (13:02→23:16)
[2017-12-14] MEDS: FUROSEMIDE 40MG/4ML VIAL IVP SCH (17:01)
[2017-12-14] MEDS ORDERED: KCL 20MEQ/100ML PREMIX 100 ML IV NR (18:00)
[2017-12-15] VITALS (12 sets, daily range): BP systolic 118–144; BP diastolic 50–60
[2017-12-15] MEDS: MORPHINE SULFATE 4 MG/ML CPJ (NOT FOR IM USE) IV PRN ×5 (06:14→21:27)
[2017-12-15] MEDS: DILTIAZEM HCL 30MG TABLET PO SCH ×3 (06:14→21:26)
[2017-12-15] MEDS: SULFAMETHOXAZOLE/TRIMETHOPRIM 800/160MG TABLET PO SCH ×2 (06:14→18:05)
[2017-12-15] MEDS: METRONIDAZOLE 500 MG PREMIX 100 ML IV SCH ×3 (06:15→21:21)
[2017-12-15] MEDS: BLOOD SUGAR DIAGNOSTIC STRIP TEST SCH ×3 (06:16→21:20)
[2017-12-15] MEDS: NYSTATIN POWDER 15GM TOP SCH ×3 (06:16→21:21)
[2017-12-15 06:35] LABS: INR 1.6; PROTHROMBIN TIME 15.9 sec (9.1-11.1)
[2017-12-15] MEDS: INSULIN LISPRO 100 UNITS/ML SUBCUT SCH ×3 (08:00→21:00)
[2017-12-15] MEDS: AZTREONAM 2 GM in DEXT 5% WATER 100 ML IV SCH ×2 (10:00→20:16)
[2017-12-15] MEDS: MIDODRINE HCL 5MG TABLET PO SCH ×3 (10:01→18:06)
[2017-12-15] MEDS: ZINC SULFATE 220 MG ( 50 ) CAPSULE PO SCH (10:01)
[2017-12-15] MEDS: MULTIVITAMINS,THER W-MINERALS TABLET PO SCH (10:01)
[2017-12-15] MEDS: FUROSEMIDE 40MG/4ML VIAL IVP SCH (10:01)
[2017-12-15] MEDS: LINEZOLID 600 MG PREMIX 300 ML IV SCH ×2 (10:04→20:18)
[2017-12-15] MEDS: ASCORBIC ACID 250 MG TABLET PO SCH (12:49)
[2017-12-16] VITALS (12 sets, daily range): BP systolic 120–144; BP diastolic 53–71
[2017-12-16] MEDS: MORPHINE SULFATE 4 MG/ML CPJ (NOT FOR IM USE) IV PRN ×5 (03:30→20:03)
[2017-12-16] MEDS: METRONIDAZOLE 500 MG PREMIX 100 ML IV SCH ×2 (06:11→13:50)
[2017-12-16] MEDS: DILTIAZEM HCL 30MG TABLET PO SCH ×3 (06:12→22:06)
[2017-12-16] MEDS: NYSTATIN POWDER 15GM TOP SCH ×3 (06:12→22:07)
[2017-12-16] MEDS: SULFAMETHOXAZOLE/TRIMETHOPRIM 800/160MG TABLET PO SCH ×2 (06:12→18:02)
[2017-12-16 06:33] LABS: INR 1.5; PROTHROMBIN TIME 15.1 sec (9.1-11.1)
[2017-12-16 06:40] LABS: BASOPHILS % 0.1 % (0.0-2.0); EOSINOPHILS % 2.1 % (0.0-5.0); HEMATOCRIT. 24.5 % (42.0-52.0); HEMOGLOBIN. 8.2 g/dL (14.0-18.0); LYMPHOCYTES % 7.7 % (20.0-50.0); MEAN CORPUSCULAR HEMOGLOBIN 29.6 pg (28.0-32.0); MEAN CORPUSCULAR VOLUME 88.8 fL (80.0-94.0); MEAN PLATELET VOLUME 7.9 fl (7.4-10.4); MONOCYTES % 3.5 % (2.0-8.0); NEUTROPHILS % 86.6 % (40.0-76.0); PLATELET 64 x1000/uL (130-400); RED BLOOD CELL COUNT 2.76 mill/uL (4.7-6.1); RED CELL DISTRIBUTION WIDTH 18.7 % (11.6-14.6)
[2017-12-16 06:46] LABS: CHLORIDE 109 mEq/L (98-107)
[2017-12-16] MEDS: BLOOD SUGAR DIAGNOSTIC STRIP TEST SCH ×4 (07:54→21:36)
[2017-12-16] MEDS: LINEZOLID 600 MG PREMIX 300 ML IV SCH ×2 (08:00→20:14)
[2017-12-16] MEDS: INSULIN LISPRO 100 UNITS/ML SUBCUT SCH ×4 (08:00→21:00)
[2017-12-16] MEDS: MIDODRINE HCL 5MG TABLET PO SCH ×3 (08:51→18:02)
[2017-12-16] MEDS: MULTIVITAMINS,THER W-MINERALS TABLET PO SCH (08:52)
[2017-12-16] MEDS: ASCORBIC ACID 250 MG TABLET PO SCH (08:52)
[2017-12-16] MEDS: AZTREONAM 2 GM in DEXT 5% WATER 100 ML IV SCH ×2 (08:52→20:03)
[2017-12-16] MEDS: FUROSEMIDE 40MG/4ML VIAL IVP SCH (08:52)
[2017-12-16] MEDS: ZINC SULFATE 220 MG ( 50 ) CAPSULE PO SCH (09:16)
[2017-12-17] VITALS (9 sets, daily range): BP systolic 126–141; BP diastolic 49–78
[2017-12-17] MEDS: MORPHINE SULFATE 4 MG/ML CPJ (NOT FOR IM USE) IV PRN ×2 (02:15→05:42)
[2017-12-17] MEDS: SULFAMETHOXAZOLE/TRIMETHOPRIM 800/160MG TABLET PO SCH ×2 (05:32→17:50)
[2017-12-17] MEDS: DILTIAZEM HCL 30MG TABLET PO SCH ×2 (05:33→13:11)
[2017-12-17] MEDS: NYSTATIN POWDER 15GM TOP SCH ×2 (05:33→13:13)
[2017-12-17 06:33] LABS: INR 1.5
[2017-12-17 06:50] LABS: BASOPHILS % 0.2 % (0.0-2.0); EOSINOPHILS % 2.4 % (0.0-5.0); HEMATOCRIT. 22.8 % (42.0-52.0); HEMOGLOBIN. 7.7 g/dL (14.0-18.0); LYMPHOCYTES % 7.4 % (20.0-50.0); MEAN CORPUSCULAR HEMOGLOBIN 30.1 pg (28.0-32.0); MEAN CORPUSCULAR VOLUME 88.9 fL (80.0-94.0); MEAN PLATELET VOLUME 8.3 fl (7.4-10.4); MONOCYTES % 3.7 % (2.0-8.0); NEUTROPHILS % 86.3 % (40.0-76.0); PLATELET 58 x1000/uL (130-400); RED BLOOD CELL COUNT 2.56 mill/uL (4.7-6.1); RED CELL DISTRIBUTION WIDTH 18.5 % (11.6-14.6)
[2017-12-17 06:54] LABS: CHLORIDE 109 mEq/L (98-107)
[2017-12-17] MEDS: BLOOD SUGAR DIAGNOSTIC STRIP TEST SCH ×3 (07:38→17:47)
[2017-12-17] MEDS: INSULIN LISPRO 100 UNITS/ML SUBCUT SCH ×3 (08:00→17:47)
[2017-12-17] MEDS: FUROSEMIDE 40MG/4ML VIAL IVP SCH (08:25)
[2017-12-17] MEDS: MIDODRINE HCL 5MG TABLET PO SCH ×3 (08:25→17:50)
[2017-12-17] MEDS: MULTIVITAMINS,THER W-MINERALS TABLET PO SCH (08:26)
[2017-12-17] MEDS: ZINC SULFATE 220 MG ( 50 ) CAPSULE PO SCH (08:26)
[2017-12-17] MEDS: ASCORBIC ACID 250 MG TABLET PO SCH (08:26)
[2017-12-17] MEDS ORDERED: POTASSIUM CHLORIDE 20MEQ/PACKET PO NR (10:15)
[2017-12-19] MEDS ORDERED: DILT30TA3 PO (23:36)
[2017-12-19] MEDS ORDERED: ASCO100T12 PO (23:36)
[2017-12-19] MEDS ORDERED: MIDO5TAB PO (23:36)
[2017-12-19] MEDS ORDERED: WARF4TAB71 PO (23:36)
[2017-12-19] MEDS ORDERED: MULT-647 PO (23:36)
[2017-12-19] MEDS ORDERED: ZINC220T PO (23:36)
== END 2017-12-17 18:25 | DRG 314 ==
LOC: ER 14:17 → EDBEDREQ 15:20 → 5EST 16:20 → EDBEDREQTM 16:33 → EDBEDREQ 16:33 → ENRESERV 16:38 → 7WST 10-25 14:25 → CVICU 12-11 05:00 → 5EST 12-15 02:24
PROVIDERS: ADMIT Internal Medicine Nephrology; ATTEND Internal Medicine Nephrology
PROC: 30233L1 Transfusion of Nonautologous Fresh Plasma into Peripheral Vein, Percutaneous Approach (ICD-10-PCS; 2017-10-20)
PROC: 30233K1 Transfusion of Nonautologous Frozen Plasma into Peripheral Vein, Percutaneous Approach (ICD-10-PCS; 2017-10-20)
PROC: 0QBM0ZZ Excision of Left Tarsal, Open Approach (ICD-10-PCS; 2017-10-29)
PROC: 0KBB0ZZ Excision of Left Lower Arm and Wrist Muscle, Open Approach (ICD-10-PCS; 2017-10-29)
PROC: 30233N1 Transfusion of Nonautologous Red Blood Cells into Peripheral Vein, Percutaneous Approach (ICD-10-PCS; 2017-10-29)
PROC: 0JB70ZZ Excision of Back Subcutaneous Tissue and Fascia, Open Approach (ICD-10-PCS; principal; 2017-11-04)
PROC: 0JB90ZZ Excision of Buttock Subcutaneous Tissue and Fascia, Open Approach (ICD-10-PCS; 2017-11-04)
PROC: 0JB70ZZ Excision of Back Subcutaneous Tissue and Fascia, Open Approach (ICD-10-PCS; 2017-12-09)
PROC: 02HV33Z Insertion of Infusion Device into Superior Vena Cava, Percutaneous Approach (ICD-10-PCS; 2017-12-11)
PROC: B548ZZA Ultrasonography of Superior Vena Cava, Guidance (ICD-10-PCS; 2017-12-11)
DX: T87.44 Infection of amputation stump, left lower extremity (principal); N17.0 Acute kidney failure with tubular necrosis; R57.1 Hypovolemic shock; R65.20 Severe sepsis without septic shock; E43 Unspecified severe protein-calorie malnutrition; G93.40 Encephalopathy, unspecified; A04.72 Enterocolitis due to Clostridium difficile, not specified as recurrent; A41.9 Sepsis, unspecified organism; J18.9 Pneumonia, unspecified organism; L89.153 Pressure ulcer of sacral region, stage 3; L89.323 Pressure ulcer of left buttock, stage 3; A40.0 Sepsis due to streptococcus, group A; D68.9 Coagulation defect, unspecified; E87.2 Acidosis; D69.6 Thrombocytopenia, unspecified; E11.621 Type 2 diabetes mellitus with foot ulcer; E87.5 Hyperkalemia; E11.69 Type 2 diabetes mellitus with other specified complication; E66.01 Morbid (severe) obesity due to excess calories; I27.20 Pulmonary hypertension, unspecified; E87.6 Hypokalemia; I48.1 Persistent atrial fibrillation; I48.2 Chronic atrial fibrillation; I48.92 Unspecified atrial flutter; M17.11 Unilateral primary osteoarthritis, right knee; N39.0 Urinary tract infection, site not specified; E87.1 Hypo-osmolality and hyponatremia; D50.0 Iron deficiency anemia secondary to blood loss (chronic); L89.899 Pressure ulcer of other site, unspecified stage; M86.8X7 Other osteomyelitis, ankle and foot; I87.8 Other specified disorders of veins; B96.4 Proteus (mirabilis) (morganii) as the cause of diseases classified elsewhere; T87.81 Dehiscence of amputation stump; I10 Essential (primary) hypertension; D63.8 Anemia in other chronic diseases classified elsewhere; Y83.8 Other surgical procedures as the cause of abnormal reaction of the patient, or of later complication, without mention of misadventure at the time of the procedure; Y95 Nosocomial condition; L89.890 Pressure ulcer of other site, unstageable; L03.114 Cellulitis of left upper limb; L89.619 Pressure ulcer of right heel, unspecified stage; T36.8X5A Adverse effect of other systemic antibiotics, initial encounter; L97.529 Non-pressure chronic ulcer of other part of left foot with unspecified severity; L98.499 Non-pressure chronic ulcer of skin of other sites with unspecified severity; Z68.37 Body mass index [BMI] 37.0-37.9, adult; Y83.5 Amputation of limb(s) as the cause of abnormal reaction of the patient, or of later complication, without mention of misadventure at the time of the procedure; K61.1 Rectal abscess; I07.1 Rheumatic tricuspid insufficiency; E87.8 Other disorders of electrolyte and fluid balance, not elsewhere classified; S40.822A Blister (nonthermal) of left upper arm, initial encounter; X58.XXXA Exposure to other specified factors, initial encounter; Y92.89 Other specified places as the place of occurrence of the external cause; Z86.73 Personal history of transient ischemic attack (TIA), and cerebral infarction without residual deficits; Z59.0 Homelessness; Z74.01 Bed confinement status; Y93.89 Activity, other specified; Y99.8 Other external cause status; Z88.0 Allergy status to penicillin; Z84.1 Family history of disorders of kidney and ureter; Z88.1 Allergy status to other antibiotic agents; Z82.49 Family history of ischemic heart disease and other diseases of the circulatory system; Z87.440 Personal history of urinary (tract) infections; Z79.01 Long term (current) use of anticoagulants; Z79.899 Other long term (current) drug therapy; Z71.3 Dietary counseling and surveillance
CPT/HCPCS: 36415; 36430; 36569; 36600; 71045; 72192; 73200; 73562; 73630; 76770; 76881; 76937; 80048; 80162; 80305; 82270; 82375; 82805; 82962; 83605; 83735; 83880; 83970; 84100; 84132; 84134; 84145; 84484; 85014; 85018; 85027; 85049; 85384; 85651; 86140; 86850; 86900; 86920; 86927; 87070; 87075; 87077; 87186; 87493; 88304; 93005; 93306; 93970; 96365; 96367; 97110; 97163; 97166; 99291; A4216; A6261; C1725; C1769; C1893; J0610; J0878; J1100; J1160; J1650; J1815; J1940; J2020; J2175; J2250; J2270; J2405; J2597; J2704; J2710; J3010; J3430; J3475; J3480; J3490; J7030; J7040; J7050; J7060; J7070; P9016; P9017; P9021; Q9963; A4315